=== PATIENT | female | born 1985 | race Caucasian/White ===

== ENCOUNTER → 2024-08-17 | Outpatient (CLI) | payer MEDICAID, SELFPAY | END | disposition home or self-care (01) | LOC: SL 11:21 | PROVIDERS: PCP Nurse Practitioner Adult Health; Referring Provider Internal Medicine Critical Care Medicine; Visit Provider Internal Medicine Critical Care Medicine | DX: G71.11 Myotonic muscular dystrophy (principal) | CPT/HCPCS: 94762 ×2 ==

== ENCOUNTER → 2024-08-24 | Outpatient (CLI) | payer MEDICAID, SELFPAY | END | disposition home or self-care (01) | LOC: SL 11:14 | PROVIDERS: PCP Nurse Practitioner Adult Health; Referring Provider Internal Medicine Critical Care Medicine; Visit Provider Internal Medicine Critical Care Medicine | DX: G71.11 Myotonic muscular dystrophy (principal) | CPT/HCPCS: 94762 ==

== ENCOUNTER → 2024-09-08 | Outpatient (CLI) | payer MEDICAID, SELFPAY | END | disposition home or self-care (01) | LOC: PSN 12:51 | PROVIDERS: PCP Nurse Practitioner Adult Health; Referring Provider Internal Medicine Critical Care Medicine; Visit Provider Internal Medicine Critical Care Medicine | DX: G71.11 Myotonic muscular dystrophy (principal) | CPT/HCPCS: 94060; 94726; 94729 ==

== ENCOUNTER → 2024-10-11 | Outpatient (CLI) | payer MEDICAID, SELFPAY | END | disposition home or self-care (01) | LOC: SL 20:02 | PROVIDERS: PCP Nurse Practitioner Adult Health; Referring Provider Nurse Practitioner Family; Visit Provider Nurse Practitioner Family | DX: G47.10 Hypersomnia, unspecified (principal) | CPT/HCPCS: 95810 ==

== ENCOUNTER → 2024-12-29 | Outpatient (CLI) | payer MEDICAID, SELFPAY ==
[2024-12-29 12:50] LABS: Allen Test Positive; Base Excess 5 mmol/L (-2 to +2); PO2 95 mmHG (75-100); SITE R Brach; SO2 98 % (95-99)
--- OUTSIDE RECORDS SUMMARY | 2024-12-29 19:52 | XMS RPT_ITS | CCD ---
Author Organization [facility] Care Team Providers Care Pricing Manager Name Role Phone JESSE ROMEO, DEBORA Khan Primary Care Physician MAST AREA LOSS PREVENTION MANAGER-TERRAZZO INSTALLER, JANICE Attending Karlee BYRNE MD, DEBORA Khan Primary Care Unavailable MAST AREA LOSS PREVENTION MANAGER-TERRAZZO INSTALLER, JANICE Attending Karlee BYRNE MD, DEBORA Khan Primary Care Unavailable MAST AREA LOSS PREVENTION MANAGER-TERRAZZO INSTALLER, JANICE Attending Karlee BYRNE MD, DEBORA Khan Primary Care Unavailable Mast AREA LOSS PREVENTION MANAGER.TERRAZZO INSTALLER, Janice Unavailable [phone] Debora Byrne Primary Care Provider [phone] Mast AREA LOSS PREVENTION MANAGER.TERRAZZO INSTALLER, Janice Unavailable MAURICIO CHOW Referring Unavailable JESSE, DEBORA ZIMMER Primary Care Unavailab MAURICIO Alston Attending Unavailable JESSE, DEBORA ZIMMER Primary Care Unavailab le JESSE, DEBORA ZIMMER Primary Care Unavailab MAURICIO Alston Referring Unavailable MAST AREA LOSS PREVENTION MANAGER-TERRAZZO INSTALLER, JANICE Primary Care UnavailKB Story Attending Unavailable MAST AREA LOSS PREVENTION MANAGER-TERRAZZO INSTALLER, JANICE Primary Care Physician [phone] Dr. Leif Quiros DO Attending Provider Dr. Kb Veloz DO Referring Provider [phone] Dr. Leif Quiros DO Referring Provider MAST PROFESSOR OF ENVIRONMENTAL STUDIES, JANICE Primary Care Provider Jessica Rust Attending Provider MAST PROFESSOR OF ENVIRONMENTAL STUDIES, JANICE Referring Provider [phone] Jessica Rust Referring Provider Dr. Leif Quiros DO Attending Provider Dr. Leif Quiros DO Referring Provider MAST PROFESSOR OF ENVIRONMENTAL STUDIES, JANICE Primary Care Provider [phone] Leif Quiros Attending Unavailable OgKb Referring Unavailable MAST, JANICE Primary Care Unavailable MAST, JANICE Referring Unavailable Jessica Amin Attending Unavailable MAST, JANICE Primary Care Unavailable Leif Quiros Referring Unavailable Leif Quiros Attending Unavailable MAST, JANICE Primary Care Unavailable MAST, JANICE Referring Unavailable RufenJessica messina Attending Unavailable MAST, JANICE Primary Care Unavailable MAST, JANICE Referring Unavailable RufenJessica messina Attending Unavailable MAST, JANICE Primary Care Unavailable Jessica Amin Attending Unavailable RuJessica wiggins Referring Unavailable Brown, Leif Referring Unavailable Ishaan, Leif Attending Unavailable MAST, JANICE Primary Care Unavailable MAST, JANICE Primary Care Unavailable RuJessica wiggins Attending Unavailable Jessica Amin Referring Unavailable Leif Quiros Attending Unavailable Ishaan, Leif Referring Unavailable MAST, JANICE Primary Care Unavailable Leif Quiros Attending Unavailable BrownLeif Referring Unavailable MAST, JANICE Primary Care Unavailable Allergies Allergy Classification Reported Allergen(s) Allergy Type Date of Onset Reaction(s) Facility (3 sources) seasonal enviromental Allergy to substance Typical [facility] Medications Current Medications Medication Drug Class(es) Dates Sig (Normalized) Sig (Original) acetaminophen 500 mg oral tablet (9 sources) Start: 07-29-2024 take 2 tablets by mouth every six hours as needed Acetaminophen (Tylenol Extra Strength) 500 mg tablet Active 1000 mg PO EVERY 6 HOURS as needed July 29, 2024 12:00am Start: 03-12-2022 acetaminophen 500 mg oral tablet Dose : 1,000 mg = 2 tab(s), Oral, TID, PRN pain or fever, 0 Refill(s) Start Date: 03/12/22 Status: Ordered Ascorbic Acid (2 sources) Vitamin C Start: 03-12-2022 Vitamin C qDay, PRN as needed, gummies, 0 Refill(s) Start Date: 03/12/22 Status: Ordered azithromycin 250 mg oral tablet (1 source) Macrolide Antimicrobial Start: 01-09-2024 End: 01-14-2024 azithromycin 250 mg oral tablet Dose : 250 mg = 1 tab(s), Oral, qDay, 2 tabs on day one, then one tab daily, X 5 day(s), # 6 tab(s), 0 Refill(s), 01/14/24 10:07:00 AM EDT, Pharmacy: [facility]/pharmacy #[id number], 160, cm, 01/09/24 9:44:00 EDT, Height, 34.2, kg, 01/09/24 9:44:00 EDT, Dosing Weight Start Date: 01/09/24 Stop Date: 01/14/24 Status: Ordered budesonide 0.25 mg/ml inhalation suspension (5 sources) Corticosteroid Start: 09-20-2024 End: 11-02-2024 take 0.5 mg by inhalation twice daily Budesonide 0.5 mg/2 mL suspension for nebulization Active 0.5 mg INHALATION TWICE A DAY 120 November 02, 2024 3:12pm 12 hr buPROPion hydrochloride 150 mg extended release oral tablet (2 sources) Aminoketone Start: 11-01-2024 take 1 tablet by mouth once daily Bupropion Hcl (Wellbutrin Sr) 150 mg tablet sustained-release 12 hr Active 150 mg PO daily 60 0 November 01, 2024 12:00am dicyclomine hydrochloride 10 mg oral capsule (11 sources) Anticholinergic Start: 07-29-2024 take 1 capsule by mouth once daily as needed Dicyclomine 10 mg capsule Active 10 mg PO daily as needed July 29, 2024 12:00am Start: 11-20-2023 End: 12-20-2023 dicyclomine 10 mg oral capsu le Dose : 10 mg = 1 cap(s), Oral, qDay, PRN as needed, # 30 cap(s), 0 Refill(s), Pharmacy: [facility]/pharmacy #[id number], Irritable bowel syndrome, 161, cm, 05/22/23 10:03:00 EST, Height, kg, 05/22/23 10:03:00 EST, Dosing Weight Start Date: 11/20/23 Stop Date: 12/20/23 Status: Ordered Start: 05-22-2023 End: 06-21-2023 dicyclomine 10 mg oral capsu le Dose : 10 mg = 1 cap(s), Oral, qDay, PRN as needed, # 30 cap(s), 0 Refill(s), Pharmacy: [facility] #[id number], Irritable bowel syndrome, 161, cm, 05/22/23 10:03:00 EST, Height, kg, 05/22/23 10:03:00 EST, Dosing Weight Start Date: 05/22/23 Stop Date: 06/21/23 Status: Ordered Start: 03-12-2022 End: 04-11-2022 dicyclomine 10 mg oral capsu le Dose : 10 mg = 1 cap(s), Oral, qDay, PRN as needed, # 30 cap(s), 0 Refill(s), Pharmacy: [facility] #[id number], Irritable bowel syndrome, 161.29, cm, 03/12/22 13:07:00 EST, Height Start Date: 03/12/22 Stop Date: 04/11/22 Status: Ordered dicyclomine HCl (DICYCLOMINE ORAL) Take by mouth as needed (abdominal cramping). 0 Active Comment on above: Take by mouth as nee ded (abdominal cramping). Elderberry preparation (3 sources) Start: take 1 mg by mouth once daily as needed elderberry mg, Oral, qDay, PRN as needed, gummie, 0 Refill(s) Start Date: 03/12/22 Status: Ordered ibuprofen 200 mg oral tablet (9 sources) Nonsteroidal Anti-inflammatory Drug Start: take 1 tablet by mouth every six hours as needed Ibuprofen 200 mg tablet Active 200 mg PO EVERY 6 HOURS as needed July 29, 2024 12:00am Start: 03-12-2022 ibuprofen 200 mg oral tablet Dose : 400 mg = 2 tab(s), Oral, q6hr, PRN pain or fever, 0 Refill(s) Start Date: 03/12/22 Status: Ordered Multivitamin preparation (2 sources) Start: 03-12-2022 take 1 tablet by mouth once daily as needed Multivitamin Dose = 1 tab(s), Oral, Daily, PRN as needed, 0 Refill(s) Start Date: 03/12/22 Status: Ordered nebulizer kits (3 sources) Start: 09-20-2024 nebulizer kits Active 0 .ROUTE .MEDSUPPLY 1 September 20, 2024 12:00am As directed Start: 09-20-2024 nebulizer kits Active 0 .ROUTE .MEDSUPPLY 1 September 20, 2024 12:00am As directed neublizer machine (3 sources) Start: 09-20-2024 neublizer mach ine Active 0 .ROUTE .MEDSUPPLY 1 0 September 20, 2024 12:00am Sydnie Jet nebulizer Start: 09-20-2024 neublizer mach ine Active 0 .ROUTE .MEDSUPPLY 1 September 20, 2024 12:00am Sydnie Jet nebulizer perflutren lipid microsphere s 1.3 mL in NaCl (PF) 0.9% 10 mL injection (DEFINITY) (1 source) Start: 08-25-2022 End: 11-24-2023 perflutren lipid microsphere s 1.3 mL in NaCl (PF) 0.9% 10 mL injection (DEFINITY) revefenacin 0.0583 mg/ml inhalation solution (4 sources) Start: 09-20-2024 Revefenacin (Y upelri) 175 mcg/3 mL solution for nebulization Active 175 ug INHALATION daily 90 September 20, 2024 12:00am 125 ml sodium chloride 9 mg/ ml prefilled syringe (1 source) Start: 08-25-2022 End: 11-24-2023 sodium chloride 0.9 % (flush ) 10 mL (BD POSIFLUSH) Completed/Discontinued Medications Medication Drug Class(es) Dates Sig (Normalized) Sig (Original) benzonatate 100 mg oral capsule (7 sources) Non-narcotic Antitussive Start: 01-09-2024 End: 01-03-2025 take 1 capsule by mouth every eight hours as needed Benzonatate 100 mg capsule Discontinued 100 mg PO Q8H as needed July 29, 2024 12:00am August 02, 2024 10:41am ELDERBERRY FRUIT (6 sources) Start: 07-29-2024 End: 08-02-2024 Elderberry Fruit 350 mg capsule Discontinued mg PO July 29, 2024 12:00am August 02, 2024 10:41am loratadine 10 mg oral tablet (12 sources) Start: 01-09-2024 End: 01-03-2025 take 1 tablet by mouth once daily Loratadine 10 mg tablet Discontinued 10 mg PO daily July 29, 2024 12:00am August 02, 2024 10:41am Start: 08-19-2022 take 1 tablet by swapna once daily loratadine (CLARITIN) 10 mg tablet Take 10 mg by mouth once daily. 0 08/19/2022 Active Start: 07-26-2021 loratadine 10 mg oral tablet Dose : 10 mg = 1 tab(s), Oral, qDay, # 90 tab(s), 2 Refill(s), Pharmacy: [facility] [address], 160, cm, 07/26/21 14:04:00 EDT, Height, kg, 07/26/21 14:04:00 EDT, Dosing Weight Start Date: 07/26/21 Status: Ordered Comment on above: Take 10 mg by mouth once daily. varenicline 1 mg oral tablet (4 sources) Partial Cholinergic Nicotinic Agonist Start: End: take 1 tablet by mouth twice daily, then take 1 tablet by mouth once Varenicline Tartrate (Chantix Continuing Month Box) 1 mg tablet Discontinued 1 mg PO TWICE A DAY 56 0 September 20, 2024 12:00am November 01, 2024 10:22am to begin after the starting pack Varenicline Tartrate (Chantix Starting Month Box) 0.5 mg (11)- 1 mg (42) tablets,dose pack (4 sources) Start: End: take 1 tablet by mouth once Varenicline Tartrate (Chantix Starting Month Box) 0.5 mg (11)- 1 mg (42) tablets,dose pack Discontinued 0 PO per package directions 53 September 20, 2024 12:00am November 01, 2024 10:22am PO PER PKG DIR Start: 09-20-2024 take 1 tablet by mouth once Va renicline Tartrate (Chantix Starting Month Box) 0.5 mg (11)- 1 mg (42) tablets,dose pack Active 0 PO per package directions 53 September 20, 2024 12:00am PO PER PKG DIR Problems Active Problems Problem Classification Problem Date Documented Da te Episodic/Chronic Administrative/social admission (9 sources) Patient encounter status; Translations: [Tobacco abuse counseling] 09-20-2024 Episodic Asthma (3 sources) Asthma 11-29-2019 Chronic Cardiac dysrhythmias (11 sources) Atrial flutter; Translations: [Typical atrial flutter] Onset: 3 11-29-2019 Chronic Cardiac dysrhythmias (1 source) Palpitations; Translations: [Palpitations] Onset: 3 08-25-2022 Episodic Chronic obstructive pulmonary disease and bronchiectasis (10 sources) Chronic obstructive lung disease; Translations: [Chronic obstructive pulmonary disease, unspecified] Onset: 5 09-20-2024 Chronic Comment on above: FEV1 54% Coagulation and hemorrhagic disorders (10 sources) Thrombocytopenic disorder; Translations: [Thrombocytopenia, unspecified] Onset: Chronic Disorders of teeth and jaw (3 sources) Abscess of jaw 11-29-2019 Episodic Lymphadenitis (3 sources) Anterior cervical lymphadenopathy 11-29-2019 Episodic Malaise and fatigue (6 sources) Asthenia; Translations: [Fatigue] 06-11-2022 Episodic Nutritional deficiencies (6 sources) Cachexia; Translations: [Cachexia] 07-29-2024 Episodic Other female genital disorders (3 sources) Heavy episode of vaginal bleeding 06-11-2022 Chronic Other gastrointestinal disorders (3 sources) Irritable bowel syndrome 03-12-2022 Chronic Other gastrointestinal disorders (19 sources) Dysphagia; Translations: [Dysphagia, unspecified] 06-11-2022 Episodic Other lower respiratory disease (6 sources) Cough; Translations: [Cough] 07-29-2024 Episodic Other lower respiratory disease (3 sources) Hypoxemia; Translations: [Hypoxemia] 11-01-2024 Episodic Other nervous system disorders (9 sources) Muscular dystrophy; Translations: [Muscular dystrophy, unspecified] 10-21-2015 Chronic Other nervous system disorders (2 sources) Steinert myotonic dystrophy syndrome; 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] Onset: 3 Chronic Other nervous system disorders (5 sources) Myotonic muscular dystrophy Chronic Other nervous system disorders (19 sources) Myotonic muscular dystrophy; 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] Onset: 5 08-03-2024 Chronic Other nervous system disorders (3 sources) Has difficulty with speech 06-11-2022 Episodic Other nutritional; endocrine; and metabolic disorders (9 sources) Body mass index less than 20; Translations: [Body mass index (BMI) 19.9 or less, adult] 06-11-2022 Episodic Other nutritional; endocrine; and metabolic disorders (3 sources) Underweight 06-11-2022 Episodic Other screening for suspected conditions (not mental disorders or infectious disease) (1 source) Encounter for screening for cardiovascular disorders; Translations: [Screening for ischemic heart disease] Onset: 3 Episodic Effie-; endo-; and myocarditis; cardiomyopathy (except that caused by tuberculosis or sexually transmitted disease) (18 sources) Cardiomyopathy; Translations: [Nonischemic congestive cardiomyopathy] 07-22-2019 Chronic Residual codes; unclassified (11 sources) Daytime hypersomnia; Translations: [Hypersomnia, unspecified] 09-20-2024 Chronic Comment on above: STOP BANG=3 Residual codes; unclassified (1 source) Hypersomnia, unspecified; Translations: [Hypersomnia, unspecified] Onset: 5 Chronic Residual codes; unclassified (15 sources) Tobacco user; Translations: [Tobacco use] 11-29-2019 Episodic Skin and subcutaneous tissue infections (3 sources) Abscess of neck 11-29-2019 Episodic Spontaneous (4 sources) Complete inevitable miscarriage without complication; Translations: [Complete or unspecified spontaneous without complication] Onset: 3 Episodic Unclassified (3 sources) Finding of sensation of abdomen 06-11-2022 Unclassified (6 sources) G71.11 - Myotonic muscular dystrophy Past or Other Problems Problem Classification Problem Date Documented Da te Episodic/Chronic Other gastrointestinal disorders (1 source) Dysphagia, unspecified; Translations: [Dysphagia, unspecified] Onset: 08-10-2024 Episodic Residual codes; unclassified (1 source) Tobacco use; Translations: [Tobacco use] Onset: 08-10-2024 Episodic Results Test Name Value Interpretation Reference Range Facility Pulmonary Visit Reporton Pulmonary Visit Report [facility] [place] [address] [place], [place] [address] OFFICE VISIT Date of Service: 12/27/24 MR#: [id number] Acct: [id number] Name: MILTONMCKAYLA BLANCO Rep #: [id number] : 1985 Provider: Jessica Amin NP Age/Sex: 39/F Location: [facility] Status: Signed Assessment and Plan Assessment and Plan (1) Myotonic muscular dystrophy: Status: Chronic Plan: There is both obstruction and restriction seen on the PFT. 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 I have recommended she continue with nebulized therapy and smoking cessation. At this time it does not appear that the patient requires CoughAssist device or vest therapy but these may be helpful in the future. Continue to follow with speech therapy for swallowing recommendations. Given the presence of muscular dystrophy, nocturnal hypoxemia, reduced MIPS, MEPS, and VC along with restrictive lung disease seen on PFT, I have recommended that the patient undergo an ABG to evaluate for PCO2 > 45 mmHg to begin NIV therapy. The patient will likely need to use [facility]. (2) Daytime hypersomnia: Status: Acute Comment: STOP BANG=3 Plan: Sleep apnea was not identified on PSG. There was oxyhemoglobin desaturations recorded during REM sleep. Patient is likely a candidate for NIV, await ABG. (3) COPD (chronic obstructive pulmonary disease): Status: Chronic Qualifiers: COPD type: unspecified COPD Qualified Code(s): J44.9 - Chronic obstructive pulmonary disease, unspecified Comment: FEV1 54% Plan: Continue with nebulized budesonide and Yupelri as ordered. These medications have reduced the cough frequency. No further testing at this time. The patient should notify this practice if she has worsening respiratory symptoms. (4) Encounter for tobacco use cessation counseling: Status: Acute Plan: The patient understands the benefits of smoking cessation. She has tolerated Wellbutrin 150 mg once daily dosing without side effects. Increase to 150 mg twice daily dose to assist with smoking cessation. Reassess on follow up. (5) Hypoxemia: Status: Acute Plan: Nocturnal hypoxemia is identified, this is likely due to the muscular dystrophy that is present. PAP therapy is warranted. Patient is willing to proceed with ABG. Orders: Orders ARTERIAL BLOOD GAS (AMB ONLY) Today J44.9 - Chronic obstructive pulmonary disease, unspecified Medications: Changed From bupropion HCl SR (Wellbutrin SR) 150 mg PO QDAY 60 ea 0RF J44.9 - Chronic obstructive pulmonary disease, unspecified To bupropion HCl SR (Wellbutrin SR) 150 mg PO BID 60 ea 5RF J44.9 - Chronic obstructive pulmonary disease, unspecified Plan Details Follow Up: 3 Months (LMR) HPI HPI Comments Details: The patient is a 39-year-old female who presents to the clinic today to follow-up for recent testing. She has a history of frequent pneumonia in the setting of myotonic muscular dystrophy, restrictive lung disease, COPD. She presents today with her significant other. The patient reported that she was diagnosed with myotonic muscular dystrophy around the age of 25. She has an apparent history of frequent pneumonias, according to the patient and her mother. She is not currently being actively managed or followed by any neurologist. She has not had recent exacerbation requiring oral prednisone or antibiotics since last follow-up. She was apparently last treated for pneumonia in December 2023. She has noted a significant increase in her muscular dystrophy symptoms over the course of the last several years with decrea sing tolerance to physical activity and frequent falls. In addition, the patient reported frequent swallowing difficulties with cough. The patient has not pursued the speech therapy referral that was previously placed. She denies wheezing, cough, shortness of breath. She denies chest pain and chest tightness. She denies cough. She denies fever, chills, body aches. She is currently on disability. She is a current daily smoker of 0.5 packs of cigarettes per day. Also admits to recreational use of smoking marijuana. She did try Chantix but had emesis. She has recently tried Wellbutrin but does not feel that it is working for her. Her significant other also smokes and is not ready to quit at this time. She admits to tiredness throughout the day. There is witnessed snoring. She does awaken at night gasping for air. She does not have a routine sleep schedule. She sleeps for about 12 to 16 hours a day interrupted. There is witnessed shallow breathing. She sleeps in supine and side-lying positioning. A PAP device has been ordered but patient has not yet been set up with therapy. She is using 2 L/min of supplemental oxygen at night. Budesonide and Yupelri (more content not included)... Normal [facility] Pulmonary Visit Reporton Pulmonary Visit Report [facility] [place] [address] [place], [place] [address] OFFICE VISIT Date of Service: 11/01/24 MR#: [id number] Acct: [id number] Name: MCKAYLA SAHA Rep #: [id number] : 1985 Provider: Jessica Amin NP Age/Sex: 39/F Location: [facility] Status: Signed Assessment and Plan Assessment and Plan (1) Myotonic muscular dystrophy: Status: Chronic Plan: There is both obstruction and restriction seen on the PFT. 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 I have recommended nebulized therapy, smoking cessation and further sleep testing at this time. At this time it does not appear that the patient requires CoughAssist device or vest therapy but these may be helpful in the future. Continue to follow with speech therapy for swallowing recommendations. The patient is not willing to complete an ABG today. Given the presence of muscular dystrophy, nocturnal hypoxemia, reduced MIPS, MEPS, and VC along with restrictive lung disease seen on PFT, I have recommended that the patient begin BiPAP therapy. The patient will likely need to use [facility]. She will likely need an Auto-titrating BiPAP or NIV both were discussed today at her appointment. (2) Daytime hypersomnia: Status: Acute Comment: STOP BANG=3 Plan: Sleep apnea was not identified on PSG. There was oxyhemoglobin desaturations recorded during REM sleep. I recommend that the patient utilize bilevel therapy for neuromuscular disease that has begun to affect her lung functioning. (3) COPD (chronic obstructive pulmonary disease): Status: Chronic Qualifiers: COPD type: unspecified COPD Qualified Code(s): J44.9 - Chronic obstructive pulmonary disease, unspecified Comment: FEV1 54% Plan: I continue to recommend that the patient begin nebulized budesonide and Yupelri. The patient does have a valid prescription and approval from insurance. Further clarification on the budesonide and nebulizer status is needed from pharmacy. The patient understands that they may be receiving a phone call from an unknown number and is encouraged to answer and respond. The budesonide should be nebulized twice daily and Yupelri nebulized once daily. The patient should notify this practice if she has worsening respiratory symptoms. (4) Encounter for tobacco use cessation counseling: Status: Acute Plan: The patient understands the benefits of smoking cessation and wishes to have help today. Chantix is discontinued. The patient would like to trial Wellbutrin and this is prescribed accordingly today. I have started with the 150 mg once daily dose and plan to increase to the BID dosing on follow up if the patient tolerates medication without side effect. Use and potential side effects of this medication were discussed with patient today. All questions were answered. Follow up in 8 weeks to reassess. (5) Hypoxemia: Status: Acute Plan: Nocturnal hypoxemia is identified, this is likely due to the muscular dystrophy that is present. I have recommended that she begin 2 L/min of supplemental oxygen at night while she is awaiting set up with Bipap therapy. Medications: New bupropion HCl SR (Wellbutrin SR) 150 mg PO QDAY 60 ea 0RF Plan Details Follow Up: 8 Weeks (LMR) HPI HPI Comments Details: The patient is a 38-year-old female who presents to the clinic today to follow-up for recent testing. She has a history of frequent pneumonia in the setting of myotonic muscular dystrophy, restrictive lung disease, COPD. She presents today with her mother. The patient reported that she was diagnosed with myotonic muscular dystrophy around the age of 25. She has an apparent history of frequent pneumonias, according to the patient and her mother. She is not currently being actively managed or followed by any neurologist. She has not had recent exacerbation requiring oral prednisone or antibiotics since last follow-up. She was apparently last treated for pneumonia in December 2023. She has noted a significant increase in her muscular dystrophy symptoms over the course of the last several years with decreasing tolerance to physical activity and frequent falls. In addition, the patient reported frequent swallowing difficulties with cough. The patient has not pursued the speech therapy referral that was previously placed. She denies wheezing, cough, shortness of breath. She denies chest pain and chest tightness. Her mother does report that she hears her cough on occasion. She denies fever, chills, body aches. She is currently on disability. She is a current daily smoker of 0.5 packs of cigarettes per day. Also admits to recreational use of smoking marijuana. She did try Chantix but had emesis with the medication. She has stopped using it. She admits to (more content not included)... Normal [facility] Pulmonary Visit [place] Pulmonary Visit Report [place] [facility] [address] [place] [address] OFFICE VISIT Date of Service: 09/20/24 MR#: [id number] Acct: [id number] Name: MCKAYLA SAHA Rep #: [id number] : 1985 Provider: Jessica Amin NP Age/Sex: 38/F Location: [facility] Status: Signed Assessment and Plan Assessment and Plan (1) Myotonic muscular dystrophy: Status: Chronic Plan: There is both obstruction and restriction seen on the PFT. 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 I have recommended nebulized therapy, smoking cessation and further sleep testing at this time. At this time it does not appear that the patient requires CoughAssist device or vest therapy but these may be helpful in the future. (2) Swallowing difficulty: Status: Chronic Plan: Due to the reported swallowing difficulties, I have recommended that she complete the referral to speech therapy for further evaluation. (3) Daytime hypersomnia: Status: Acute Comment: STOP BANG=3 Plan: The patient does have risk for sleep apnea. Not only is her STOP-BANG elevated but she has clusters of desaturations seen on the nocturnal oximetry. I have recommended that she proceed with an in-lab polysomnogram for further evaluation of suspected sleep disordered breathing and the patient is agreeable to proceed with the testing. The pathophysiology of sleep apnea was reviewed at length with patient today. I have discussed how PAP therapy can also help preserve her lung functioning in regards to muscular dystrophy. (4) COPD (chronic obstructive pulmonary disease): Status: Chronic Qualifiers: COPD type: unspecified COPD Qualified Code(s): J44.9 - Chronic obstructive pulmonary disease, unspecified Comment: FEV1 54% Plan: I have recommended that the patient begin nebulized budesonide and Yupelri. The patient should have a prescription for a nebulizer and kits. The budesonide should be nebulized twice daily and Yupelri nebulized once daily. The patient is in agreement to begin this regimen. The use of these medications were reviewed at length with patient and her mom today. The patient should notify this practice if she has worsening respiratory symptoms. (5) Encounter for tobacco use cessation counseling: Status: Acute Plan: The patient is educated about the benefits of smoking cessation. Medical nicotine replacement therapy was offered to the patient. The patient would like to trial Chantix and this is prescribed accordingly today. Discussed habits, barriers, coping mechanisms for 11 minutes face to face. All questions were answered. Orders: Orders Polysomnography Today G47.10 - Hypersomnia, unspecified Medications: New varenicline tartrate (Chantix Starting Month Box) PO PER PKG DIR 53 tabs 0RF varenicline tartrate (Chantix Continuing Month Box) to begin after the starting pack 1 mg PO BID 56 tabs 0RF budesonide 0.5 mg (2 mL) inhalation BID 60 mL 5RF revefenacin (Yupelri) 175 mcg (3 mL) inhalation QDAY 90 mL 5RF [nebulizer kits] As directed 1 ea 11RF [neublizer machine] Sydnie Jet nebulizer 1 ea 0RF Plan Details Follow Up: 6 Weeks (LMR) HPI HPI Comments Details: The patient is a 38-year-old female who presents to the clinic today to follow-up for recent testing. She has a history of frequent pneumonia in the setting of myotonic muscular dystrophy. The patient reported that she was diagnosed with myotonic muscular dystrophy around the age of 25. She has an apparent history of frequent pneumonias, according to the patient and her mother. She is not currently being actively managed or followed by any neurologist. She was apparently last treated for pneumonia in December 2023. She has noted a significant increase in her muscular dystrophy symptoms over the course of the last several years with decreasing tolerance to physical activity and frequent falls. In addition, the patient reported frequent swallowing difficulties with cough. The patient has not pursued the speech therapy referral that was previously placed. She denies wheezing, cough, shortness of breath. She denies chest pain and chest tightness. Her mother does report that she hears her cough on occasion. She denies fever, chills, body aches. She is currently on disability. She is a current daily smoker of 0.5 packs of cigarettes per day. Also admits to recreational use of smoking marijuana. She admits to tiredness throughout the day. There is witnessed snoring. She does awaken at night gasping for air. She does not have a routine sleep schedule. She sleeps for about 12 to 16 hours a day interrupted. There is witnessed shallow breathing. She sleeps in supine and side-lying positioning. She does not currently use any inhalers at her baseline. She is not (more content not included)... Normal [facility] Pulmonary Visit Reporton Pulmonary Visit Report [facility] [address] [place] [address] OFFICE VISIT Date of Service: 08/02/24 MR#: [id number] Acct: [id number] Name: MCKAYLA SAHA Rep #: [id number] : 1985 Provider: Dr. Leif Quiros DO Age/Sex: 38/F Location: [facility] Status: Signed Assessment and Plan Assessment and Plan (1) Myotonic muscular dystrophy: Status: Chronic Plan: The patient presents today to establish care over concerns for the pulmonary implications of her progressive myotonic muscular dystrophy. At the present time, the patient is asymptomatic from a respiratory perspective, but does report a history of frequent pneumonias. In addition, she does report frequent swallowing difficulties with associated cough. Accordingly, I would recommend that the patient be referred to speech therapy for evaluation. In the interim, we will plan to obtain pulmonary function studies along with MIPS/MEPS. Overnight oximetry will also be completed to assess for any nocturnal hypoxemia. I did explain to the patient the progressive nature of her disease and that sometimes patients require tracheostomy and PEG tube placement. The patient reported that she would never consider these interventions. At the present time, the patient appears to have an adequate cough. Therefore, I do not see an overt indication to initiate CoughAssist device or vest therapy. (2) Current tobacco use: Status: Chronic Plan: Tobacco cessation counseling was provided. (3) Swallowing difficulty: Status: Chronic Plan: In light of the reported swallowing difficulties, will refer to speech therapy for further evaluation. Orders: Orders OutPt Pulse Ox/Cont Overnight 08/02/24 G71.11 - Myotonic muscular dystrophy PFT Complete - DLCO, Spirometry b/a bronchodilators, lung volumes 09/08/24 G71.11 - Myotonic muscular dystrophy Referrals Speech Therapy Referral G71.11 - Myotonic muscular dystrophy HPI HPI Comments Details: The patient is a 38-year-old female who presents to the clinic today in referral for the evaluation of frequent pneumonia in the setting of myotonic muscular dystrophy. The patient reported that she was diagnosed with myotonic muscular dystrophy around the age of 25. She has an apparent history of frequent pneumonias, according to the patient and her mother. She is not currently being actively managed or followed by any neurologist. Ironically, she denies any breathing related issues today. She denies the presence of shortness of breath, cough, chest tightness or wheezing. She was apparently last treated for pneumonia in December 2023. She has noted a significant increase in her muscular dystrophy symptoms over the course of the last several years with decreasing tolerance to physical activity and frequent falls. In addition, the patient reported frequent swallowing difficulties with cough. She is currently on disability. She is a current daily smoker of 0.5 packs of cigarettes per day. She does not currently use any inhalers at her baseline. She is not oxygen dependent. The patient has never been evaluated by a district claims manager, nor has she ever completed pulmonary function studies in the past. Intake Vital Signs 08/02/24 10:38 Height 5 ft 3 in Weight: 81 lb BMI 14.3 BP 100/69 Blood Pressure Location Rt brachial Position Sitting Respiration 18 Pulse 80 Pulse Source Monitor Temp 97.4 F L Temperature Source Temporal Artery Pulse Oximetry (%) 99 Oxygen Delivery Method room air Intake Visit Reasons: MUSC DYST, RECUR PNEUMONIA, DFFY COUGHING SECRETIO [employer] Man Required: No Accompanied by: Mother Allergies No Known Allergies Allergy (Unverified 08/02/24 10:40) Medications ???Medication ???Instructions ???Recorded ???Confirmed ???Type acetaminophen 500 mg tablet 1,000 mg PO Q6H PRN 07/29/2407/29 History (Tylenol Extra Strength) dicyclomine 10 mg capsule 10 mg PO QDAY PRN 07/29/24 5 History ibuprofen 200 mg tablet 200 mg PO Q6H PRN 07/29/24 5 History PFSH Medical History Weakness generalized Underweight Neck abscess Episode of heavy vaginal bleeding Miscarriage IBS (irritable bowel syndrome) Fatigue Dysphagia Difficulty with speech Anterior cervical lymphadenopathy BMI less than 19,adult Asthma Abscess, jaw Abdominal cramps Thrombocytopenia Risk and functional assessment Family History Mother Heart disease Osteoporosis Father Myotonic dystrophy Sister Myotonic dystrophy Grandfather , Paternal CHF (congestive heart failure) Grandmother , 70yrs Sepsis secondary to c diff Social History (Updated 08/02/24 (more content not included)... Normal [facility] XR CHEST 2 VIEWSon 4 XR CHEST 2 VIEWS ORIGINAL EXAMINATION: TWO XRAY VIEWS OF THE CHEST 01/09/2024 10:31 am COMPARISON: Chest x-ray November 29, 2019 HISTORY: ORDERING SYSTEM PROVIDED HISTORY: Reason for Exam: cough, hx of muscular dystrophy, rule out pneumonia FINDINGS: The cardiomediastinal silhouette is within normal limits. The lungs appear hyperinflated. Developing airspace disease is and effacement of the left hemidiaphragm affects the left lower lobe. Appearance is consistent with developing left lower lobe pneumonia. There is no vascular congestion, pleural effusion, or pneumothorax. Stable crowding of the right lung markings seen in the medial right lung base. No acute osseous abnormality. IMPRESSION: Hyperinflated lungs with left lower lobe pneumonia. I have personally reviewed the images of this examination and agree with the resident's findings and interpretation. Interpreted by: Parker Schulz DO Preliminary Report By: Maxwell Meadows Electronically signed By Parker Schulz DO Dictated Date: 01/11/2024 8:26:16 AM Prelim Date: 01/11/2024 9:02:45 AM Sign Date: 01/11/2024 9:02:45 AM Ordering Provider: KB VELOZ [facility] ECHOon 09-09-2022 Echocardiography Echocardiography Report: Transthoracic Echo [facility] Date of service: 09/09/2022 1:03:52 PM PRECISION ASSEMBLER Ordering physician: MAURICIO CHOW Indication: Palpitations Technologist: Corrine Carolina [facility] Interpreting physician: Trinity Paulson MD PATIENT: Name: MCKAYLA SAHA : 1985 Age: 36 years Gender: F History of arrhythmia. Primary rhythm: sinus. Height: 154.94 cm BSA: 1.23 m Weight: 35.38 kg BMI: 14.7 kg/m Heart rate 91 bpm Technically difficult exam due to body habitus. Color Doppler was utilized to interrogate the cardiac valves assessed and spectral Doppler was utilized to determine the flow velocities and pressure gradients reported in this exam. MEASUREMENTS: Value Indexed Normal Max aortic dimension 2.4 cm Ao < 3.8 Left atrial volume 10 ml (4ch A-L) 8 ml/m Tania <= 34 LV ID (diastole) 3.5 cm (2D) 2.81 cm/m LV ID (systole) 2.5 cm (2D) 2.06 cm/m IVS, leaflet tips 0.6 cm (2D) Posterior wall thickness 0.6 cm (2D) Left ventricular mass 52 g (2D) 42 g/m LV stroke volume 16 ml (2D 4-ch.) LV end diastolic volume 24 ml (2D 4-ch.) 19.7 ml/m 29<=EDVi<62 LV end systolic volume 8 ml (2D 4-ch.) 6.8 ml/m Ejection Fraction 66 % (2D 4-ch.) EF > 54 FINDINGS: LEFT VENTRICLE The left ventricle is small. Left ventricular systolic function is normal. Normal left ventricular diastolic function. Mitral annular lateral E/e': 5.9. Mitral annular septal E/e': 5.4. Wall Motion: All scored segments are normal. RIGHT VENTRICLE The right ventricle is normal in size. Right ventricular systolic function is normal. RV systolic tissue Doppler velocity is 10.0 cm/s. Tricuspid annular displacement is 1.7 cm. Estimated right atrial pressure is 3 mmHg (although IVC not seen). LEFT ATRIUM The left atrial cavity is normal in size. RIGHT ATRIUM The right atrial cavity is normal in size. Inferior Vena Cava: The inferior vena cava appears normal measuring 1.3 cm. MITRAL VALVE The mitral valve leaflets are structurally normal. There is no mitral valve regurgitation. The pressure half time is 48 msec. The peak mitral E/A ratio is 1.38. The average mitral E/e' ratio is 5.6. The mitral flow deceleration time is 166 msec. TRICUSPID VALVE The tricuspid valve leaflets are structurally normal. There is no tricuspid valve regurgitation. AORTIC VALVE The aortic valve cusps are structurally normal. There is no aortic valve regurgitation. Tricuspid aortic valve. The peak gradient is 6 mmHg (peak velocity = 117.8 cm/s). PULMONIC VALVE The pulmonic valve cusps are structurally normal. There is trace (trace - 1+) pulmonic valve regurgitation. AORTA The visualized aorta is normal in size. Measurements - Mid ascending aorta 2.4 cm. CONCLUSIONS: - Technically difficult exam due to body habitus. - Exam indication: Palpitations - The left ventricle is small. Left ventricular systolic function is normal. EF = 66 5% (2D 4-ch.) Normal left ventricular diastolic function. - The right ventricle is normal in size. Right ventricular systolic function is normal. - There are no significant valvular abnormalities. - The patient has not had a prior CC echocardiographic exam for comparison. * * * Final * * * CC [employer] [facility] Image : [id number] [id number] Normal [facility] CNOVon 08-25-2022 CNOV Office Visit (CAWSTR ) MCKAYLA SAHA ([id number]) 1985 F Date Time Provider Department 08/25/22 2:00 PM MAURICIO CHOW CAWSTR During your visit today, we recorded the following information about you: Pulse Blood pressure Weight 86/minute 82/58 35.4 kg Jadyn Celaya 08/25/2022 2:54 PM Signed EVENT MONITOR DISPOSABLE PATCH INSTRUCTIONS Patient Name: Mckayla Saha Clinic Number: [id number] Skin prepped and cleansed with alcohol Patch secured to prepped area Monitor Activated Serial #: [id number] Patient Instructed: Prescribed order timeframe Bathing guidelines Usage of event button and diary documentation Return of monitor at the end of prescribed order Call with problems [phone] or [phone]. [phone] Patient expresses a good understanding of instructions Jadyn Chow MD 08/25/2022 2:54 PM Signed Mauricio Chow MD Interventional Cardiology [facility] [address], [place] [address] [phone] Chief Complaint Patient presents with: New Patient HISTORY OF PRESENT ILLNESS: Ms. Saha is a 36 year old female seen in my office for cardiac evaluation patient with myotonic dystrophy type I Patient had recurrent episodes of palpitation on a daily basis diagnosed with atrial flutter 2 years ago she was on medicine for short period of time Myotonic dystrophy was diagnosed at age of 21 progressively got worse by age of 26 Symptoms suggestive of possible underlying arrhythmias Cardiac Risk Factors none PAST MEDICAL HISTORY Diagnosis Date Abdominal spasms History of atrial flutter Myotonic muscular dystrophy (HCC) PAST SURGICAL HISTORY Procedure Laterality Date TONSILLECTOMY AND ADENOIDECTOMY FAMILY HISTORY Problem Relation Age of Onset COPD Mother Muscular dystrophy Father Muscular dystrophy Sister Social History Tobacco Use Smoking status: Every Day Packs/day: 1.00 Years: 18.00 Pack years: 18.00 Types: Cigarettes Smokeless tobacco: Never Substance Use Topics Alcohol use: Never ALLERGIES Not on File Medications: Current Outpatient Medications Medication Sig Dispense Refill loratadine (CLARITIN) 10 mg tablet Take 10 mg by mouth once daily. dicyclomine HCl (DICYCLOMINE ORAL) Take by mouth as needed (abdominal cramping). Current Facility-Administered Medications Medication Dose Route Frequency Provider Last Rate Last Admin perflutren lipid microspheres 1.3 mL in NaCl (PF) 0.9% 10 mL injection (DEFINITY) INTRAVENOUS DIRECTED PRN Mauricio Chow MD sodium chloride 0.9 % (flush) 10 mL (BD POSIFLUSH) 10 mL INTRAVENOUS DIRECTED PRN Mauricio Chow MD Review of Systems Constitutional: Negative for chills, diaphoresis, fever, malaise/fatigue and weight loss. HENT: Negative for congestion, ear discharge, ear pain, hearing loss, nosebleeds, sinus pain, sore throat and tinnitus. Eyes: Negative for blurred vision, double vision, photophobia, pain, discharge and redness. Respiratory: Negative for cough, hemoptysis, sputum production, shortness of breath, wheezing and stridor. Cardiovascular: Negative for chest pain, palpitations, orthopnea, claudication, leg swelling and PND. Gastrointestinal: Negative for abdominal pain, blood in stool, constipation, diarrhea, heartburn, melena, nausea and vomiting. Genitourinary: Negative for dysuria, flank pain, frequency, hematuria and urgency. Musculoskeletal: Negative for back pain, falls, joint pain, myalgias and neck pain. Skin: Negative for itching and rash. Neurological: Negative for dizziness, tingling, tremors, sensory change, speech change, focal weakness, seizures, loss of consciousness, weakness and headaches. Endo/Heme/Allergies: Negative for environmental allergies and polydipsia. Does not bruise/bleed easily. Psychiatric/Behaviora l: Negative for depression, hallucinations, memory loss, substance abuse and suicidal ideas. The patient is not nervous/anxious and does not have insomnia. Physical Examination: Vitals:BP 82/58 Pulse 86 Wt 78 lb (35.4kg) SpO2 99% BP w/Orthostatic Vitals Date and Time Orthostatic BP Orthostatic Pulse BP Pulse BP Position BP Site BP Cuff Size 08/25/22 1405 -- -- 82/58 86 -- -- -- Last 2 Encounter Wt Readings: Date: Wt: 08/25/2022 35.4 kg (78 lb) Physical Exam Constitutional: General: She is not in acute distress. Appearance: She is not diaphoretic. HENT: Head: Normocephalic and atraumatic. Right Ear: External ear normal. Left Ear: External ear normal. Nose: Nose normal. Mouth/Throat: Mouth: Mucous membranes are moist. Eyes: General: Right eye: No discharge. Left eye: No discharge. Conjunctiva/sclera: Conjunctivae normal. Pupils: Pupils are equal, round, and reactive to light. Cardiovascular: Rate and Rhythm: Normal rate and regular rhythm. Heart (more content not included)... Normal [facility] [id number] 08-25-2022 ECG01 Ventricular Rate : 7 9 BPM Atrial Rate : 79 BPM P-R Interval : 162 ms QRS Duration : 96 ms Q-T Interval : 382 ms QTC Calculation(Bazett) : 438 ms Calculated P [place] : 84 degrees Calculated R [place] : 9 degrees Calculated T [place] : 67 degrees NORMAL SINUS RHYTHM Confirmed by ALVERTO MARK DO ([id number]) on 08/28/2022 8:39:12 AM NAME : MCKAYLA SAHA PID : [id number] : 1985 Gender : Female Race : Unknown ORD : Procedure Date : Aug 25 2022 14:14:17 Edit Date : Aug 28 2022 08:39:14 Diagnosis: NORMAL SINUS RHYTHM Confirmed by ALVERTO MARK DO ([id number]) on 08/28/2022 8:39:12 AM Test Reason : Location : 136 : [place] Overread By : ALVERTO MARK DO Edited By : ALVERTO MARK DO Referred By : MAURICIO CHOW Acquired by : Kirill jorge [facility] US PELVIS NON-OB W/TRANSVAGI NALon 06-17-2022 US PELVIS NON-OB W/TRANSVAGINAL ORIGINAL EXAMINATION: TRANSVAGINAL PELVIC ULTRASOUND 06/13/2022 TECHNIQUE: Transvaginal and transabdominal pelvic ultrasound was performed. COMPARISON: None HISTORY: ORDERING SYSTEM PROVIDED HISTORY: Reason for Exam: possible miscarriage FINDINGS: Measurements: Uterus: 5.9 x 2.7 x 4.7 cm. Endometrial stripe: 0.3 cm. Right Ovary:2.6 x 1.5 x 2.0 cm Left Ovary: 1.4 x 2.0 x 2 1 cm. Ultrasound Findings: Uterus: Uterus demonstrates normal myometrial echotexture. Incidental nabothian cysts. In the anterior midbody there is a 1.0 cm hypoechoic lesions suspected represent small myometrial fibroid. Endometrial stripe: Endometrial stripe is within normal limits. Right Ovary: Right ovary is within normal limits. Normal color and spectral waveforms. Left Ovary: Left ovary is within normal limits. Likely corpus luteum present. Normal blood flow on color and spectral Doppler. Free Fluid: No evidence of free fluid. IMPRESSION: Normal appearance of the uterus without fluid in the endometrial stripe. Incidental small likely fibroid the anterior midbody of the uterus. Normal follicular appearance of the ovaries with a incidental left corpus luteum. RECOMMENDATIONS: Unavailable Interpreted by: Agapito Carreno Preliminary Report By: Agapito Carreno Electronically signed By Agapito Carreno Dictated Date: 06/16/2022 11:02:08 PM Prelim Date: 06/16/2022 11:04:42 PM Sign Date: 06/16/2022 11:04:42 PM Ordering Provider: JANICE Roy [facility] ([place]) Leticia 06-16-2022 KERVIN Telephone (REFPHY) MCKAYLA SAHA ([id number]) 1985 F Date Time Provider Department 06/16/22 NO ONE (HISTORICAL) REFPHY During your visit today, we recorded the following information about you: Serena Willson 06/16/2022 10:35 AM Signed Patient: Mckayla Saha Date of : 1985 Patient phone number: [phone] Referring Provider for the encounter: Janice Kennedy Requesting Provider: Any Reason for requesting visit (RFV/signs and symptoms/diagnosis): for A Flutter Person calling: self Return call to: self Medical Records/Insurance Card scanned into Exosect: Yes Comments: please contact the patient Katharina Martinezer Sched 06/16/2022 11:51 AM Signed [facility] RP - Unable to reach patient, mailbox is full, cell phone ringing busy, Atrial Flutter, Additional Information: additional 7 pages sent to external documents. Katharina Montero Sched 06/19/2022 8:38 AM Signed [facility] RP - Final attempt, Unable to reach patient, mailbox is full, cell phone ringing busy. Allergies As of Date: 06/16/2022 (Not on File) Date Reviewed: Never Reviewed Reason for Visit: External Referrals/resources [909] Problem List As Of Date: 06/16/2022 (None) Encounter Status:Closed by SERENA CLANCY on 06/16/22 [facility] HCGQon 06-13-2022 hCG, quantitative 583.3 mIU/mL Normal [facility] ([place]) Comment on above: Result Comment: HCG Levels with Gestation age: 0.2- 1 week. . . . . . . . . . . . . . . 5 - 50 mIU/mL 1-2 weeks . . . . . . . . . . . . . . . 50 - 500 mIU/mL 2-3 weeks . . . . . . . . . . . . . . . 100 - 5,000 mIU/ml 3-4 weeks . . . . . . . . . . . . . . . 500 - 10,000 mIU/mL 4-5 weeks . . . . . . . . . . . . . . . 1,000 - 5,000 mIU/mL 5-6 weeks . . . . . . . . . . . . . . . 10,000 - 100,000 mIU/mL 6-8 weeks . . . . . . . . . . . . . . . 15,000 - 200,000 mIU/mL 2-3 months . . . . . . . . . . . . . . . 10,000 - 100,000 mIU/mL Performed By: #### H CGQ #### [address] [address] LABORATORYOrdered By: SYSTEM SYSTEM on 06-13-2022 HCG Qn 583.3 m[IU]/mL Invalid Interpretation Code AO ADM SS .Auto Diffon 06-11-2022 Basophil, Absolute 0.0 10 3/mcL Normal 0.0-0.2 [facility] ([place]) Comment on above: Performed By: #### G FR, ADIFF, CMP, HCGQ, CBC, ANEU #### [address] [address] Basophils/100 WBC (Bld) 0.3 % Normal 0.0-2.5 [facility] ([place]) Comment on above: Performed By: #### G FR, ADIFF, CMP, HCGQ, CBC, ANEU #### [address] [address] Eosinophil, Absolute 0.1 10 3/mcL Normal 0.0-0.4 [facility] ([place]) Comment on above: Performed By: #### G FR, ADIFF, CMP, HCGQ, CBC, ANEU #### [address] [address] Eosinophils/100 WBC (Bld) 1.0 % Normal 0.0-7.0 [facility] ([place]) Comment on above: Performed By: #### G FR, ADIFF, CMP, HCGQ, CBC, ANEU #### [address] [address] Lymphocyte, Absolute 2.3 10 3/mcL Normal 0.8-3.9 [facility] ([place]) Comment on above: Performed By: #### G FR, ADIFF, CMP, HCGQ, CBC, ANEU #### [address] [address] Lymphocytes/100 WBC (Bld) 26.7 % Normal 10.0-50.0 [facility] [facility] ([place] Comment on above: Performed By: #### G FR, ADIFF, CMP, HCGQ, CBC, ANEU #### [address] [address] Monocyte, Absolute 0.4 10 3/mcL Normal 0.2-1.0 [facility] ([place]) Comment on above: Performed By: #### G FR, ADIFF, CMP, HCGQ, CBC, ANEU #### [address] [address] Monocytes/100 WBC (Bld) 4.2 % Normal 1.7-13.0 [facility] ([place]) Comment on above: Performed By: #### G FR, ADIFF, CMP, HCGQ, CBC, ANEU #### [address] [address] Neutrophils/100 WBC (Bld) 67.8 % Normal 37.0-80.0 [facility] ([place]) Comment on above: Performed By: #### G FR, ADIFF, CMP, HCGQ, CBC, ANEU #### [address] [address] .GFRon 06-11-2022 GFR 182 ml/min/1.73sqm Normal [facility] ([place]) Comment on above: Result Comment: GFR Population mean for , Non- Americans Ages 20-29 = 116 mL/min/1.73 sq.m. Ages 30-39 = 107 mL/min/1.73 sq.m. Ages 40-49 = 99 mL/min/1.73 sq.m. Ages 50-59 = 93 mL/min/1.73 sq.m. Ages 60-69 = 85 mL/min/1.73 sq.m. Ages 70+ = 75 mL/min/1.73 sq.m. Chronic Kidney Disease: Less than 60 mL/min/1.73 square meters End Stage Renal Disease: Less than 15 mL/min/1.73 square meters Performed By: #### G FR, ADIFF, CMP, HCGQ, CBC, ANEU #### [address] [address] GFR Non- 150 ml/min/1.73sqm Normal [facility] ([place]) Comment on above: Result Comment: GFR Population mean for , Non- Americans Ages 20-29 = 116 mL/min/1.73 sq.m. Ages 30-39 = 107 mL/min/1.73 sq.m. Ages 40-49 = 99 mL/min/1.73 sq.m. Ages 50-59 = 93 mL/min/1.73 sq.m. Ages 60-69 = 85 mL/min/1.73 sq.m. Ages 70+ = 75 mL/min/1.73 sq.m. Chronic Kidney Disease: Less than 60 mL/min/1.73 square meters End Stage Renal Disease: Less than 15 mL/min/1.73 square meters Performed By: #### G FR, ADIFF, CMP, HCGQ, CBC, ANEU #### [address] [address] .NEUABSon 06-11-2022 Neutrophil, Absolute 5.9 10 3/mcL Normal 2.9-6.2 [facility] ([place]) Comment on above: Performed By: #### G FR, ADIFF, CMP, HCGQ, CBC, ANEU #### [address] [address] CBCon 06-11-2022 Erythrocyte distribution width (RBC) [Ratio] 14.8 % High 11.5-14.5 [facility] ([place] Comment on above: Performed By: #### G FR, ADIFF, CMP, HCGQ, CBC, ANEU #### [address] [address] Hematocrit (Bld) [Volume fraction] 45.8 % Normal 37.0-47.0 [facility] ([place]) Comment on above: Performed By: #### G FR, ADIFF, CMP, HCGQ, CBC, ANEU #### [place] [address] Hgb 15.0 G/dL Normal 12.0-16.0 [facility] ([place]) Comment on above: Performed By: #### G FR, ADIFF, CMP, HCGQ, CBC, ANEU #### [place] [address] MCH (RBC) [Entitic mass] 29.6 pg Normal 27.0-31.2 [facility] ([place] Comment on above: Performed By: #### G FR, ADIFF, CMP, HCGQ, CBC, ANEU #### [place] [address] MCHC 32.8 G/dL Low 33.0-37.0 [facility] ([place] Comment on above: Performed By: #### G FR, ADIFF, CMP, HCGQ, CBC, ANEU #### [place] [address] MCV (RBC) [Entitic vol] 90.4 fL Normal 80.0-94.0 [facility] ([place] Comment on above: Performed By: #### G FR, ADIFF, CMP, HCGQ, CBC, ANEU #### [place] [address] Platelet 129 10 3/mcL Low 130-400 [facility] ([place] Comment on above: Performed By: #### G FR, ADIFF, CMP, HCGQ, CBC, ANEU #### [place] [address] Platelet mean volume (Bld) [Entitic vol] 8.6 fL Normal 7.4-10.4 [facility] ([place] Comment on above: Performed By: #### G FR, ADIFF, CMP, HCGQ, CBC, ANEU #### [address] [address] RBC 5.07 10 6/mcL Normal 4.20-5.40 [facility] ([place] Comment on above: Performed By: #### G FR, ADIFF, CMP, HCGQ, CBC, ANEU #### [address] [address] WBC 8.6 10 3/mcL Normal 4.6-10.8 [facility] ([place]) Comment on above: Performed By: #### G FR, ADIFF, CMP, HCGQ, CBC, ANEU #### [address] [address] CMPon 06-11-2022 Albumin Level 4.1 G/dL Normal 3.5-5.0 [facility] ([place] Comment on above: Performed By: #### G FR, ADIFF, CMP, HCGQ, CBC, ANEU #### [address] [address] Albumin/Globulin [Mass ratio] 1.2 {ratio} Normal 1.1-2.5 [facility] ([place] Comment on above: Performed By: #### G FR, ADIFF, CMP, HCGQ, CBC, ANEU #### [address] [address] ALP [Catalytic activity/Vol] 70 U/L Normal 40-135 [facility] ([place] Comment on above: Performed By: #### G FR, ADIFF, CMP, HCGQ, CBC, ANEU #### [address] [address] ALT [Catalytic activity/Vol] 22 U/L Normal 14-59 [facility] ([place] Comment on above: Performed By: #### G FR, ADIFF, CMP, HCGQ, CBC, ANEU #### [address] [address] AST [Catalytic activity/Vol] 26 U/L Normal 10-40 [facility] ([place] Comment on above: Performed By: #### G FR, ADIFF, CMP, HCGQ, CBC, ANEU #### [address] [address] Bili Total 0.2 mg/dL Normal 0.2-1.0 [facility] ([place]) Comment on above: Result Comment: Use of this assay is not recommended for patients undergoing treatment with eltrombopag due to the potential for falsely elevated results. Performed By: #### G FR, ADIFF, CMP, HCGQ, CBC, ANEU #### [address] [address] BUN/Creatinine Ratio 32 ratio High 7-27 [facility] ([place]) Comment on above: Performed By: #### G FR, ADIFF, CMP, HCGQ, CBC, ANEU #### [address] [address] Calcium [Mass/Vol] 9.3 mg/dL Normal 8.4-10.2 [facility] ([place]) Comment on above: Performed By: #### G FR, ADIFF, CMP, HCGQ, CBC, ANEU #### [address] [address] Chloride [Moles/Vol] 105 mmol/L Normal 98-107 [facility] ([place]) Comment on above: Performed By: #### G FR, ADIFF, CMP, HCGQ, CBC, ANEU #### [address] [address] CO2 [Moles/Vol] 29 mmol/L Normal 22-29 [facility] ([place]) Comment on above: Performed By: #### G FR, ADIFF, CMP, HCGQ, CBC, ANEU #### [address] [address] Creatinine [Mass/Vol] 0.47 mg/dL Low 0.55-1.02 [facility] ([place]) Comment on above: Performed By: #### G FR, ADIFF, CMP, HCGQ, CBC, ANEU #### [address] [address] Electrolyte Balance 11.0 mEq/L Normal 4.0-15.0 [facility] ([place]) Comment on above: Performed By: #### G FR, ADIFF, CMP, HCGQ, CBC, ANEU #### [address] [address] Globulin 3.3 G/dL Normal [facility] ([place]) Comment on above: Performed By: #### G FR, ADIFF, CMP, HCGQ, CBC, ANEU #### [address] [address] Glucose [Mass/Vol] 83 mg/dL Normal 70-105 [facility] ([place]) Comment on above: Performed By: #### G FR, ADIFF, CMP, HCGQ, CBC, ANEU #### [address] [address] Potassium [Moles/Vol] 4.9 mmol/L Normal 3.5-5.1 [facility] ([place]) Comment on above: Performed By: #### G FR, ADIFF, CMP, HCGQ, CBC, ANEU #### [address] [address] Sodium [Moles/Vol] 145 mmol/L Normal 136-145 [facility] ([place]) Comment on above: Performed By: #### G FR, ADIFF, CMP, HCGQ, CBC, ANEU #### [address] [address] Total Protein 7.4 G/dL Normal 6.4-8.2 [facility] ([place]) Comment on above: Performed By: #### G FR, ADIFF, CMP, HCGQ, CBC, ANEU #### [address] [address] Urea nitrogen [Mass/Vol] 15 mg/dL Normal 7-18 [facility] ([place] Comment on above: Performed By: #### G FR, ADIFF, CMP, HCGQ, CBC, ANEU #### [address] [address] HCGQon 06-11-2022 hCG, quantitative 1379.6 mIU/mL Normal [facility] ([place]) Comment on above: Result Comment: HCG Levels with Gestation age: 0.2- 1 week. . . . . . . . . . . . . . . 5 - 50 mIU/mL 1-2 weeks . . . . . . . . . . . . . . . 50 - 500 mIU/mL 2-3 weeks . . . . . . . . . . . . . . . 100 - 5,000 mIU/ml 3-4 weeks . . . . . . . . . . . . . . . 500 - 10,000 mIU/mL 4-5 weeks . . . . . . . . . . . . . . . 1,000 - 5,000 mIU/mL 5-6 weeks . . . . . . . . . . . . . . . 10,000 - 100,000 mIU/mL 6-8 weeks . . . . . . . . . . . . . . . 15,000 - 200,000 mIU/mL 2-3 months . . . . . . . . . . . . . . . 10,000 - 100,000 mIU/mL Performed By: #### G FR, ADIFF, CMP, HCGQ, CBC, ANEU #### [place] [address] LABORATORYOrdered By: SYSTEM SYSTEM on 06-11-2022 Albumin BCP dye [Mass/Vol] 4.1 G/dL Invalid Interpretation Code 3.5 - 5.0 G/dL AO ADM SS Albumin/Globulin [Mass ratio] 1.2 {ratio} Invalid Interpretation Code 1.1 - 2.5 ratio AO ADM SS ALP [Catalytic activity/Vol] 70 U/L Invalid Interpretation Code 40 - 135 U/L AO ADM SS ALT With P-5'-P [Catalytic activity/Vol] 22 U/L Invalid Interpretation Code 14 - 59 U/L AO ADM SS AST With P-5'-P [Catalytic activity/Vol] 26 U/L Invalid Interpretation Code 10 - 40 U/L AO ADM SS Bilirubin [Mass/Vol] 0.2 mg/dL Invalid Interpretation Code 0.2 - 1.0 mg/dL AO ADM SS Calcium [Mass/Vol] 9.3 mg/dL Invalid Interpretation Code 8.4 - 10.2 mg/dL AO ADM SS Chloride [Moles/Vol] 105 mmol/L Invalid Interpretation Code 98 - 107 mmol/L AO ADM SS CO2 [Moles/Vol] 29 mmol/L Invalid Interpretation Code 22 - 29 mmol/L AO ADM SS Creatinine [Mass/Vol] 0.47 mg/dL Invalid Interpretation Code 0.55 - 1.02 mg/dL AO ADM SS Electrolyte Balance 11.0 mEq/L Invalid Interpretation Code 4.0 - 15.0 mEq/L AO ADM SS GFR 182 ml/min/1.73sqm Invalid Interpretation Code AO Chemistry S GFR Non- 150 ml/min/1.73sqm Invalid Interpretation Code AO Chemistry S Globulin 3.3 G/dL Invalid Interpretation Code AO ADM SS Glucose [Mass/Vol] 83 mg/dL Invalid Interpretation Code 70 - 105 mg/dL AO ADM SS HCG Qn 1379.6 m[IU]/mL Invalid Interpretation Code AO ADM SS Potassium [Moles/Vol] 4.9 mmol/L Invalid Interpretation Code 3.5 - 5.1 mmol/L AO ADM SS Protein [Mass/Vol] 7.4 G/dL Invalid Interpretation Code 6.4 - 8.2 G/dL AO ADM SS Sodium [Moles/Vol] 145 mmol/L Invalid Interpretation Code 136 - 145 mmol/L AO ADM SS Urea nitrogen [Mass/Vol] 15 mg/dL Invalid Interpretation Code 7 - 18 mg/dL AO ADM SS Urea nitrogen/Creatinine [Mass ratio] 32 ratio Invalid Interpretation Code 7 - 27 ratio AO ADM SS LABORATORYOrdered By: Zoila Linton on 06-11-2022 Basophil, Absolute 0.0 103/mcL Invalid Interpretation Code 0.0 - 0.2 10^3/mcL AO Workflow SS Basophils/100 WBC (Bld) 0.3 % Invalid Interpretation Code 0.0 - 2.5 % AO Workflow SS Eosinophil, Absolute 0.1 103/mcL Invalid Interpretation Code 0.0 - 0.4 10^3/mcL AO Workflow SS Eosinophils/100 WBC (Bld) 1.0 % Invalid Interpretation Code 0.0 - 7.0 % AO Workflow SS Erythrocyte distribution width (RBC) [Ratio] 14.8 % Invalid Interpretation Code 11.5 - 14.5 % AO Workflow SS Hematocrit (Bld) [Volume fraction] 45.8 % Invalid Interpretation Code 37.0 - 47.0 % AO Workflow SS Hemoglobin (Bld) [Mass/Vol] 15.0 G/dL Invalid Interpretation Code 12.0 - 16.0 G/dL AO Workflow SS Lymphocyte, Absolute 2.3 103/mcL Invalid Interpretation Code 0.8 - 3.9 10^3/mcL AO Workflow SS Lymphocytes/100 WBC (Bld) 26.7 % Invalid Interpretation Code 10.0 - 50.0 % AO Workflow SS MCH (RBC) [Entitic mass] 29.6 pg Invalid Interpretation Code 27.0 - 31.2 pg AO Workflow SS MCHC 32.8 G/dL Invalid Interpretation Code 33.0 - 37.0 G/dL AO Workflow SS MCV (RBC) [Entitic vol] 90.4 fL Invalid Interpretation Code 80.0 - 94.0 fL AO Workflow SS Monocyte, Absolute 0.4 103/mcL Invalid Interpretation Code 0.2 - 1.0 10^3/mcL AO Workflow SS Monocytes/100 WBC (Bld) 4.2 % Invalid Interpretation Code 1.7 - 13.0 % AO Workflow SS Neutrophil, Absolute 5.9 103/mcL Invalid Interpretation Code 2.9 - 6.2 10^3/mcL AO Workflow SS Neutrophils/100 WBC (Bld) 67.8 % Invalid Interpretation Code 37.0 - 80.0 % AO Workflow SS Platelet mean volume (Bld) [Entitic vol] 8.6 fL Invalid Interpretation Code 7.4 - 10.4 fL AO Workflow SS Platelets (Bld) [#/Vol] 129 103/mcL Invalid Interpretation Code 130 - 400 10^3/mcL AO Workflow SS RBC (Bld) [#/Vol] 5.07 106/mcL Invalid Interpretation Code 4.20 - 5.40 10^6/mcL AO Workflow SS WBC (Bld) [#/Vol] 8.6 103/mcL Invalid Interpretation Code 4.6 - 10.8 10^3/mcL AO Workflow SS Vital Signs Date Time Vital Sign Value Performing Clinician Faci yamily 12-27-2024 05:37-0400 Body height 160.[address] Leif Quiros DO Work Phone: [facility] 12-27-2024 05:37-0400 Body mass index (BMI) [Ratio] 15 kg/m2 Dr. Leif Quiros DO Work Phone: [facility] 12-27-2024 05:37-0400 Body temperature 95.3 [degF] Dr. Leif Quiros DO Work Phone: [facility] 12-27-2024 05:37-0400 Body weight 38.[address] Leif Quiros DO Work Phone: [facility] 12-27-2024 05:37-0400 Diastolic blood pressure 69 mm[Hg] Dr. Leif Quiros DO Work Phone: [facility] 12-27-2024 05:37-0400 Heart rate 77 /min Dr. Leif Quiros DO Work Phone: [facility] 12-27-2024 05:37-0400 Respiratory rate 18 /min Dr. Leif Quiros DO Work Phone: [facility] 12-27-2024 05:37-0400 SaO2% (BldA) [Mass fraction] 97 % Dr. Leif Quiros DO Work Phone: [facility] 12-27-2024 05:37-0400 Systolic blood pressure 116 mm[Hg] Dr. Leif Quiros DO Work Phone: [facility] 11-01-2024 08:34-0400 Body mass index (BMI) [Ratio] 14.8 kg/m2 Dr. Kb Veloz DO Work Phone: [facility] 11-01-2024 08:34-0400 Body temperature 97.4 [degF] Dr. Kb Veloz DO Work Phone: [facility] 11-01-2024 08:34-0400 Body weight 38.[address] Kb Veloz DO Work Phone: [facility] 11-01-2024 08:34-0400 Diastolic blood pressure 68 mm[Hg] Dr. Kb Veloz DO Work Phone: [facility] 11-01-2024 08:34-0400 Heart rate 73 /min Dr. Kb Veloz DO Work Phone: [facility] 11-01-2024 08:34-0400 Respiratory rate 16 /min Dr. Kb Veloz DO Work Phone: [facility] 11-01-2024 08:34-0400 SaO2% (BldA) [Mass fraction] 99 % Dr. Kb Veloz DO Work Phone: [facility] 11-01-2024 08:34-0400 Systolic blood pressure 104 mm[Hg] Dr. Kb Veloz DO Work Phone: [facility] 09-20-2024 07:51-0400 Body mass index (BMI) [Ratio] 14 kg/m2 Dr. Kb Veloz DO Work Phone: [facility] 09-20-2024 07:51-0400 Body temperature 97.1 [degF] Dr. Kb Veloz DO Work Phone: [facility] 09-20-2024 07:51-0400 Body weight 35.[address] Kb Veloz DO Work Phone: [facility] 09-20-2024 07:51-0400 Diastolic blood pressure 75 mm[Hg] Dr. Kb Veloz DO Work Phone: [facility] 09-20-2024 07:51-0400 Heart rate 86 /min Dr. Kb Veloz DO Work Phone: [facility] 09-20-2024 07:51-0400 Respiratory rate 18 /min Dr. Kb Veloz DO Work Phone: [facility] 09-20-2024 07:51-0400 SaO2% (BldA) [Mass fraction] 97 % Dr. Kb Veloz DO Work Phone: [facility] 09-20-2024 07:51-0400 Systolic blood pressure 111 mm[Hg] Dr. Kb Veloz DO Work Phone: [facility] 08-02-2024 10:38-0400 Body height 160.[address] Kb Veloz DO Work Phone: [facility] 08-02-2024 10:38-0400 Body mass index (BMI) [Ratio] 14.3 kg/m2 Dr. Kb Veloz DO Work Phone: [facility] 08-02-2024 10:38-0400 Body temperature 97.4 [degF] Dr. Kb Veloz DO Work Phone: [facility] 08-02-2024 10:38-0400 Body weight 36.[address] Kb Veloz DO Work Phone: [facility] 08-02-2024 10:38-0400 Diastolic blood pressure 69 mm[Hg] Dr. Kb Veloz DO Work Phone: [facility] 08-02-2024 10:38-0400 Heart rate 80 /min Dr. Kb Veloz DO Work Phone: [facility] 08-02-2024 10:38-0400 Respiratory rate 18 /min Dr. Kb Veloz DO Work Phone: [facility] 08-02-2024 10:38-0400 SaO2% (BldA) [Mass fraction] 99 % Dr. Kb Veloz DO Work Phone: [facility] 08-02-2024 10:38-0400 Systolic blood pressure 100 mm[Hg] Dr. Kb Veloz DO Work Phone: [facility] 08-25-2022 14:05-0400 Body weight 35.38 kg Mauricio Cohw MD Work Phone: [facility] 08-25-2022 14:05-0400 Diastolic blood pressure 58 mm[Hg] Mauricio Chow MD Work Phone: [facility] 08-25-2022 14:05-0400 Heart rate 86 /min Mauricio Chow MD Work Phone: [facility] 08-25-2022 14:05-0400 SaO2% (BldA) [Mass fraction] 99 % Mauricio Chow MD Work Phone: [facility] 08-25-2022 14:05-0400 Systolic blood pressure 82 mm[Hg] Mauricio Chow MD Work Phone: [facility] Encounters Encounter Date Encounter Type Care Provider Facility Start: 12-29-2024 ambulatory JANICE MAST Facility:[facility] Start: 12-27-2024 End: 12-27-2024 Patient encounter procedure ZULEYMA Amin [facility] Work Phone: Start: 12-27-2024 End: 12-27-[address] Leif Quiros DO Work Phone: [facility] Start: 11-01-2024 End: 11-01-2024 Patient encounter procedure FUEL DISTRIBUTION SYSTEM OPERATOR Jessica Amin -[facility] Work Phone: Start: 11-01-2024 End: 11-01-[address] Kb Veloz DO Work Phone: [facility] Start: 10-11-2024 End: 10-11-[address] Kb Veloz DO Work Phone: [facility] Work Phone: Start: 10-11-2024 End: 10-11-2024 Patient encounter procedure FUEL DISTRIBUTION SYSTEM OPERATOR Jessica Amin -[facility] Work Phone: Start: 10-11-2024 End: 10-11-2024 ambulatory JANICE MAST Facility:[facility] Start: 09-20-2024 End: 09-20-2024 Patient encounter procedure ZULEYMA Amin [facility] Work Phone: Start: 09-20-2024 End: 09-20-[address] Kb Veloz DO Work Phone: [facility] Work Phone: Start: 09-08-2024 Non-patient / Non-visit Dr. Leif quinn DO -[facility] Start: 09-08-2024 End: 09-08-[address] Kb Veloz DO Work Phone: [facility] Work Phone: Start: 09-08-2024 End: 09-08-[address] Leif Quiros DO -Pulmonary Services/Neurology Work Phone: Start: 09-08-2024 End: 09-08-2024 ambulatory Leif Quiros Facility:[facility] Start: 08-24-2024 End: 08-24-[address] Leif Quiros DO -[facility] Lab Work Phone: Start: 08-24-2024 End: 08-24-2024 ambulatory Leif Quiros Facility:[facility] Start: 08-17-2024 End: 08-17-[address] Kb Veloz DO Work Phone: [facility] Work Phone: Start: 08-17-2024 End: 08-17-[address] Leif Quiros DO -[facility] Work Phone: Start: 08-17-2024 End: 08-17-2024 ambulatory Leif Quiros Facility:[facility] Start: 08-02-2024 End: 08-02-[address] Leif Quiros DO -[facility] Work Phone: Start: 08-02-2024 End: 08-02-2024 ambulatory Leif Quiros Facility:[facility] Start: 01-09-2024 End: 01-09-2024 ambulatory JANICE KENNEDY AREA LOSS PREVENTION MANAGER-TERRAZZO INSTALLER Facility:[facility] Start: 01-09-2024 End: 01-09-2024 Patient encounter procedure KB VELOZ DO [facility] Start: 09-09-2022 End: 09-09-2022 ambulatory DEBORA BYRNE Facility:[facility] Start: 08-25-2022 End: 08-25-2022 ambulatory MAURICIO CHOW Facility:[facility] Start: 08-25-2022 End: 08-25-2022 Patient encounter procedure Mauricio Chow MD Work Phone: Cardiology Comment on above: Typical atrial flutt er (HCC) (Primary Dx); Myotonic dystrophy, type 1 (HCC) Start: 06-13-2022 End: 06-14-2022 ambulatory JANICE MAST AREA LOSS PREVENTION MANAGER-TERRAZZO INSTALLER Facility:[facility] Start: 06-13-2022 End: 06-14-2022 ambulatory JANICE MAST AREA LOSS PREVENTION MANAGER-TERRAZZO INSTALLER Facility:[facility] Start: 06-13-2022 End: 06-13-2022 Patient encounter procedure JANICE MAST AREA LOSS PREVENTION MANAGER-TERRAZZO INSTALLER [facility] Start: 06-11-2022 End: 06-12-2022 ambulatory JANICE MAST AREA LOSS PREVENTION MANAGER-TERRAZZO INSTALLER Facility:[facility] Start: 06-11-2022 End: 06-11-2022 Patient encounter procedure JANICE MAST AREA LOSS PREVENTION MANAGER-TERRAZZO INSTALLER [facility] Procedures Date Procedure Procedure Detail Performing Clinician Echocardiography JANICE KENNEDY AREA LOSS PREVENTION MANAGER-TERRAZZO INSTALLER Comment on above: EF 40-45%, LV the ca vity size is mildly increased. Wall thickness is normal. Systolic function mildly reduced. Mild diffuse hypokinesis. Mild MR. Left atrium mildly reduced. RV systolic pressure by doppler is 18mm Hg. Estimated right atrial pressure is 10mm Hg. Trivial TR. Extraction of wisdom tooth K BRYANT MAST AREA LOSS PREVENTION MANAGER-TERRAZZO INSTALLER Tonsillectomy JANICE [facility] AP RN-TERRAZZO INSTALLER Plan of Treatment Date Care Activity Detail Author Start: 09-08-2024 Measurement of respi ratory function [facility] Start: 08-17-2024 Noninvasive ear/puls e oximetry overnight monitor MEASURE BLOOD OXYGEN LEVEL [facility] Start: 08-02-2024 Patient referral [facility] Work Phone: Start: 12-26-2022 Influenza vaccination INFLUENZ A (Season Ended) [facility] Start: 09-01-2022 End: 08-26-2023 Echocardiography ECHO Cardiology Routine Expected: 09/01/2022, Expires: 08/26/2023 [facility] Work Phone: Comment on above: Expected: 09/01/2022 , Expires: 08/26/2023 Start: 04-27-2022 DEPRESSION ASSESSMENT DEPRESSION ASS ESSMENT [facility] Start: 10-10-2015 HPV TESTING HPV TESTING [facility] Start: 2006 PAP TESTING PAP TESTING [facility] Start: 2004 Urine microalbumin profile DTA P,TDAP,TD (1 - Tdap) [facility] Start: 10-10-2003 HEPATITIS C SCREENING HEPATITIS C SC REENING [facility] Start: 10-10-2003 HIV SCREENING HIV SCREENING [facility] Start: 10-10-1991 PNEUMOCOCCAL (1 - PCV) PNEUMOCOCCAL (1 - PCV) [facility] Start: 04-10-1986 COVID-19 VACCINE (#1) COVID-19 VACCI NE (#1) [facility] Start: 1985 HEPATITIS B (1 of 3 - 3-dose series) HEPATITIS B (1 of 3 - 3-dose series) [facility] End: 08-20-2023 ECG COMPLETE ECG COMPLETE ECG Routine 1 Occurrences starting 08/19/2022 until 08/20/2023 [facility] Work Phone: Comment on above: 1 Occurrences starti ng 08/19/2022 until 08/20/2023 OUTSIDE VENDOR CARDI AC OUTPATIENT EXTENDED RHYTHM RECORDING (WITHOUT TELEMETRY) OUTSIDE VENDOR CARDIAC OUTPATIENT EXTENDED RHYTHM RECORDING (WITHOUT TELEMETRY) Holter Routine Ordered: 08/25/2022 [facility] Work Phone: Comment on above: Ordered: 08/25/2022 Patient referral [facility] Work Phone: [facility]omn[facility] Payers Date Payer Category Payer Self-pay 2022 Medicaid [facility] MEDICAID [facility] [employer] [id number] [id number] 2022-Present [phone] [address] [place] [address] Medicaid [id number] 2022 Private Health Insurance [id number] 1985 Unknown [id number]. 627 1985 Unknown [id number] [id number]. 627 1985 Unknown [id number] [id number]. 627 1985 Unknown [id number] [id number]. 627 Unknown [id number] [id number]. 462 Unknown [id number] [id number]. 462 Unknown [id number] [id number]. 462 Unknown [id number] [id number]. 462 Unknown [id number] 2.16.840.1.951931.3.579.2. 462 Unknown [id number] 2.16.840.1.876421.3.579.2. 462 Unknown [id number] 2.16.840.1.001630.3.579.2. 462 Unknown [id number] 2.16.840.1.635059.3.579.2. 462 Unknown [id number] 2.16.840.1.186811.3.579.2. 462 Unknown [id number] [id number]. 462 Social History Date Type Detail Facility Start: 07-20-2019 Tobacco smoking status Heavy t obacco smoker (finding) [facility] Start: 1985 Sex Assigned At Female A [facility] Start: 08-25-2022 End: 08-02-2024 Tobacco smoking status GAIS Smokes tobacco daily [facility] Work Phone: History of tobacco use Cigarette Smoker [facility] Work Phone: Start: 08-25-2022 Cigarettes smoked current (pack per day) - Reported 1 [facility] Start: 08-25-2022 Tobacco use and exposure Smokeless tobacco non-user [facility] Work Phone: Start: 08-25-2022 Alcohol intake Lifetime non-d hyun (finding) [facility] Start: 1985 Sex Assigned At Not on file [facility] Start: 08-22-2024 Sex Female (finding) [facility] Clinical Notes 06-11-2022 to 09-20-2024 Note Date & Type Note Facility 09-20-2024 Evaluation note Diagnosis Onset Date Resolution Daytime hypersomnia acute August 262024 12:38pm Encounter for tobacco use cessation counseling acute September 20, 2024 12:38pm COPD (chronic obstructive pulmonary disease) chronic September 20, 2024 12:38pm 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, 2024 12:38pm Swallowing difficulty chronic September 20, 2024 12:38pm Daytime hypersomnia acute November 01, 2024 10:12am Encounter for tobacco use cessation counseling acute November 01, 2024 10:12am Hypoxemia acute November 01, 2024 10:12am COPD (chronic obstructive pulmonary disease) chronic November 01, 2024 10:12am Myotonic muscular dystrophy chronic November 01, 2024 10:12am Daytime hypersomnia acute 2024 11:17am Encounter for tobacco use cessation counseling acute December 27 11:17am Hypoxemia acute December 27, 2024 11:17am COPD (chronic obstructive pulmonary disease) chronic December 27 11:17am Myotonic muscular dystrophy chronic December 27 11:17am [facility] Work Phone: 1(449) 314-358004-08-2025 Evaluation note* Diagnosis Onset Date Resolution Status Admit Date Current tobacco use chronic August 02, 2024 10:35am Myotonic muscular dystrophy chronic August 02, 2024 10:35am Swallowing difficulty chronic Jul 10:35am [facility] Work Phone: 1(737) 428-249904-08-2025 Evaluation note* Diagnosis Onset Date Resolution Status Admit Date Current tobacco use chronic August 02, 2024 10:35am Myotonic muscular dystrophy chronic August 02, 2024 10:35am Swallowing difficulty chronic Jul 10:35am Daytime hypersomnia acute August 262024 12:38pm Current tobacco use chronic August 262024 12:38pm 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, 2024 12:38pm Swallowing difficulty chronic September 20, 2024 12:38pm [facility] Work Phone: [phone] Evaluation note* Diagnosis Onset Date Resolution Status Admit Date Current tobacco use chronic August 02, 2024 10:35am Myotonic muscular dystrophy chronic August 02, 2024 10:35am Swallowing difficulty chronic Jul 10:35am Daytime hypersomnia acute August 262024 12:38pm Encounter for tobacco use cessation counseling acute September 20 12:38pm COPD (chronic obstructive pulmonary disease) chronic September 20 12:38pm 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, 2024 12:38pm Swallowing difficulty chronic September 20, 2024 12:38pm [facility] Work Phone: 1(350) 931-245504-08-2025 Evaluation note* Diagnosis Onset Date Resolution Status Admit Date Current tobacco use chronic August 02, 2024 10:35am Myotonic muscular dystrophy chronic August 02, 2024 10:35am Swallowing difficulty chronic Jul 10:35am Daytime hypersomnia acute August 262024 12:38pm Encounter for tobacco use cessation counseling acute September 20 12:38pm COPD (chronic obstructive pulmonary disease) chronic September 20 12:38pm 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 Author Type: Physician Type: Progress Notes Filed: 08/25/2022 2:54 PM Note Text: Mauricio Chow MD Interventional Cardiology [facility] [address], [place] [address] [id number] Chief Complaint Patient presents with: New Patient HISTORY OF PRESENT ILLNESS: Ms. Saha is a 36 year old female seen in my office for cardiac evaluation patient with myotonic dystrophy type I Patient had recurrent episodes of palpitation on a daily basis diagnosed with atrial flutter 2 years ago she was on medicine for short period of time Myotonic dystrophy was diagnosed at age of 21 progressively got worse by age of 26 Symptoms suggestive of possible underlying arrhythmias Cardiac Risk Factors none PAST MEDICAL HISTORY Diagnosis Date Abdominal spasms History of atrial flutter Myotonic muscular dystrophy (HCC) PAST SURGICAL HISTORY Procedure Laterality Date TONSILLECTOMY AND ADENOIDECTOMY FAMILY HISTORY Problem Relation Age of Onset COPD Mother Muscular dystrophy Father Muscular dystrophy Sister Social History Tobacco Use Smoking status: Every Day Packs/day: 1.00 Years: 18.00 Pack years: 18.00 Types: Cigarettes Smokeless tobacco: Never Substance Use Topics Alcohol use: Never ALLERGIES Not on File Medications: Current Outpatient Medications Medication Sig Dispense Refill loratadine (CLARITIN) 10 mg tablet Take 10 mg by mouth once daily. dicyclomine HCl (DICYCLOMINE ORAL) Take by mouth as needed (abdominal cramping). Current Facility-Administered Medications Medication Dose Route Frequency Provider Last Rate Last Admin perflutren lipid microspheres 1.3 mL in NaCl (PF) 0.9% 10 mL injection (DEFINITY) INTRAVENOUS DIRECTED PRN Mauricio Chow MD sodium chloride 0.9 % (flush) 10 mL (BD POSIFLUSH) 10 mL INTRAVENOUS DIRECTED PRN Mauricio Chow MD Review of Systems Constitutional: Negative for chills, diaphoresis, fever, malaise/fatigue and weight loss. HENT: Negative for congestion, ear discharge, ear pain, hearing loss, nosebleeds, sinus pain, sore throat and tinnitus. Eyes: Negative for blurred vision, double vision, photophobia, pain, discharge and redness. Respiratory: Negative for cough, hemoptysis, sputum production, shortness of breath, wheezing and stridor. Cardiovascular: Negative for chest pain, palpitations, orthopnea, claudication, leg swelling and PND. Gastrointestinal: Negative for abdominal pain, blood in stool, constipation, diarrhea, heartburn, melena, nausea and vomiting. Genitourinary: Negative for dysuria, flank pain, frequency, hematuria and urgency. Musculoskeletal: Negative for back pain, falls, joint pain, myalgias and neck pain. Skin: Negative for itching and rash. Neurological: Negative for dizziness, tingling, tremors, sensory change, speech change, focal weakness, seizures, loss of consciousness, weakness and headaches. Endo/Heme/Allergies: Negative for environmental allergies and polydipsia. Does not bruise/bleed easily. Psychiatric/Behavioral: Negative for depression, hallucinations, memory loss, substance abuse and suicidal ideas. The patient is not nervous/anxious and does not have insomnia. Physical Examination: Vitals:BP 82/58 Pulse 86 Wt 78 lb (35.4kg) SpO2 99% BP w/Orthostatic Vitals Date and Time Orthostatic BP Orthostatic Pulse BP Pulse BP Position BP Site BP Cuff Size 08/25/22 1405 -- -- 82/58 86 -- -- -- Last 2 Encounter Wt Readings: Date: Wt: 08/25/2022 35.4 kg (78 lb) Physical Exam Constitutional: General: She is not in acute distress. Appearance: She is not diaphoretic. HENT: Head: Normocephalic and atraumatic. Right Ear: External ear normal. Left Ear: External ear normal. Nose: Nose normal. Mouth/Throat: Mouth: Mucous membranes are moist. Eyes: General: Right eye: No discharge. Left eye: No discharge. Conjunctiva/sclera: Conjunctivae normal. Pupils: Pupils are equal, round, and reactive to light. Cardiovascular: Rate and Rhythm: Normal rate and regular rhythm. Heart sounds: Normal heart sounds, S1 normal and S2 normal. No murmur heard. No friction rub. No gallop. No S3 or S4 sounds. Pulmonary: Effort: Pulmonary effort is normal. No respiratory distress. Breath sounds: Normal breath sounds. No wheezing or rales. Chest: Chest wall: No tenderness. Musculoskeletal: General: Normal range of motion. Cervical back: Normal range of motion and neck supple. Skin: General: Skin is warm and dry. Neurological: Mental Status: She is alert and oriented to person, place, and time. Psychiatric: Mood and Affect: Mood normal. Thought Content: Thought content normal. Judgment: Judgment normal. Pertinent Labs: CBC: Hemoglobin (g/dL) Date Value 10/29/2012 12.9 Hematocrit (%) Date Value 10/29/2012 39.3 WBC (thou/cmm) Date Value (more content not included)...[facility]05-01-2023 NoteHNO ID: [id number] Author: Jadyn Celaya Service: ? Author Type: ? Type: Progress Notes Filed: 08/25/2022 2:54 PM Note Text: EVENT MONITOR DISPOSABLE PATCH INSTRUCTIONS Patient Name: Mckayla Saha [facility] Number: [id number] Skin prepped and cleansed with alcohol Patch secured to prepped area Monitor Activated Serial #: [id number] Patient Instructed: Prescribed order timeframe Bathing guidelines Usage of event button and diary documentation Return of monitor at the end of prescribed order Call with problems [phone] or [phone]. [phone] Patient expresses a good understanding of instructions [facility] of Present illness Narrative* Mauricio Chow MD - 08/25/2022 2:51 PM EDT Images from the original note were not included. Mauricio Chow MD Interventional Cardiology [facility] [address], [place] [address] [id number] Chief Complaint Patient presents with: New Patient HISTORY OF PRESENT ILLNESS: Ms. Saha is a 36 year old female seen in my office for cardiac evaluation patient with myotonicdystrophy type I Patient had recurrent episodes of palpitation on a daily basis diagnosed with atrial flutter 2 years ago she was on medicine for short period of time Myotonic dystrophy was diagnosed at age of 21 progressively got worse by age of 26 Symptoms suggestive of possible underlying arrhythmias Cardiac Risk Factors none PAST MEDICAL HISTORY Diagnosis Date Abdominal spasms History of atrial flutter Myotonic muscular dystrophy (HCC) PAST SURGICAL HISTORY Procedure Laterality Date TONSILLECTOMY & ADENOIDECTOMY <AGE 12 FAMILY HISTORY Problem Relation Age of Onset COPD Mother Muscular dystrophy Father Muscular dystrophy Sister Social History Tobacco Use Smoking status: Every Day Packs/day: 1.00 Years: 18.00 Pack years: 18.00 Types: Cigarettes Smokeless tobacco: Never Substance Use Topics Alcohol use: Never ALLERGIES Not on File Medications: Current Outpatient Medications Medication Sig Dispense Refill loratadine (CLARITIN) 10 mg tablet Take 10 mg by mouth once daily. dicyclomine HCl (DICYCLOMINE ORAL) Take by mouth as needed (abdominal cramping). Current Facility-Administered Medications Medication Dose Route Frequency Provider Last Rate Last Admin perflutren lipid microspheres 1.3 mL in NaCl (PF) 0.9% 10 mL injection (DEFINITY) INTRAVENOUS DIRECTED PRN Mauricio Chow MD sodium chloride 0.9 % (flush) 10 mL (BD POSIFLUSH) 10 mL INTRAVENOUS DIRECTED PRN Mauricio Chow MD Review of Systems Constitutional: Negative for chills, diaphoresis, fever, malaise/fatigue and weight loss. HENT: Negative for congestion, ear discharge, ear pain, hearing loss, nosebleeds, sinus pain, sore throat and tinnitus. Eyes: Negative for blurred vision, double vision, photophobia, pain, discharge and redness. Respiratory: Negative for cough, hemoptysis, sputum production, shortness of breath, wheezing and stridor. Cardiovascular: Negative for chest pain, palpitations, orthopnea, claudication, leg swelling and PND. Gastrointestinal: Negative for abdominal pain, blood in stool, constipation, diarrhea, heartburn, melena, nausea and vomiting. Genitourinary: Negative for dysuria, flank pain, frequency, hematuria and urgency. Musculoskeletal: Negative for back pain, falls, joint pain, myalgias and neck pain. Skin: Negative for itching and rash. Neurological: Negative for dizziness, tingling, tremors, sensory change, speech change, focal weakness, seizures, loss of consciousness, weakness and headaches. Endo/Heme/Allergies: Negative for environmental allergies and polydipsia. Does not bruise/bleed easily. Psychiatric/Behavioral: Negative for depression, hallucinations, memory loss, substance abuse and suicidal ideas. The patient is not nervous/anxious and does not have insomnia. Physical Examination: Vitals:BP 82/58 Pulse 86 Wt 78 lb (35.4kg) SpO2 99% BP w/Orthostatic Vitals Date and Time Orthostatic BP Orthostatic Pulse BP Pulse BP Position BP Site BP Cuff Size 08/25/22 1405 -- -- 82/58 86 -- -- -- Last 2 Encounter Wt Readings: Date: Wt: 08/25/2022 35.4 kg (78 lb) Physical Exam Constitutional: General: She is not in acute distress. Appearance: She is not diaphoretic. HENT: Head: Normocephalic and atraumatic. Right Ear: External ear normal. Left Ear: External ear normal. Nose: Nose normal. Mouth/Throat: Mouth: Mucous membranes are moist. Eyes: General: Right eye: No discharge. Left eye: No discharge. Conjunctiva/sclera: Conjunctivae normal. Pupils: Pupils are equal, round, and reactive to light. Cardiovascular: Rate and Rhythm: Normal rate and regular rhythm. Heart sounds: Normal heart sounds, S1 normal and S2 normal. No murmur heard. No friction rub. No gallop. No S3 or S4 sounds. Pulmonary: Effort: Pulmonary effort is normal. No respiratory distress. Breath sounds: Normal breath sounds. No wheezing or rales. Chest: Chest wall: No tenderness. Musculoskeletal: General: Normal range of motion. Cervical back: Normal range of motion and neck supple. Skin: General: Skin is warm and dry. Neurological: Mental Status: She is alert and oriented to person, place, and time. Psychiatric: Mood and Affect: Mood normal. Thought Content: Thought content normal. Judgment: Judgment normal. Pertinent Labs: CBC: Hemoglobin (g/dL) Date Value 10/29/2012 12.9 Hematocrit (%) Date Value 10/29/2012 39.3 WBC (thou/cmm) Date Value 10/29/2012 15.9 Platelet Count (thou/cmm) Date Value 10/29/2012 209 BMP: Glucose (mg/dL) Date Value 09/08/2012 98 Potassium (mEq/L) Date Value 09/08/2012 3.7 Sodium (mEq/L) Date Value 09/08/2012 140 Chloride (mEq/L) Date Value 09/08/2012 104 CO2 (mEq/L) Date Value 09/08/2012 27 Creatinine (mg/dL) Date Value 09/08/2012 0.52 BUN (mg/dL) Date Value 09/08/2012 8 Anion Gap (no units) Date Value 09/08/2012 13 Calcium (mg/dL) Date Value 09/08/2012 9.5 INR: Lipid Profile: No results found for: CHOL, HDL, LDL, TG Hemoglobin A1C: No results found for: HGBA1C TSH: No results found for: TSHREFL Prior Cardiac Testing EKG Assessment and Plan: 36 years old 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 Typical atrial flutter (HCC) - ICD9: 427.32, ICD10: I48.3 (primary diagnosis) Prior history of atrial flutter treated with medication Currently she is having recurrent episodes of palpitation possible arrhythmia Increased risk of atrial fibrillation flutter and ventricular arrhythmia and patient with myotonic dystrophy type I We will schedule for 14 days monitor Echocardiography to assess LV function 2. Myotonic dystrophy, type 1 (HCC) - ICD9: 359.21, ICD10: G71.11 Per PCP Mauricio Chow MD Follow up plannin weeks Electronically signed by Mauricio Chow MD on August 25, 2022, 2:51 PM The above note was partially created using a dictation recognition software. A reasonable attempt has been made to correct any errors. * Jadyn Celaya - 08/25/2022 2:48 PM EDT EVENT MONITOR DISPOSABLE PATCH INSTRUCTIONS Patient Name: Mckayla [facility] Number: [id number] Skin prepped and cleansed with alcohol Patch secured to prepped area Monitor Activated Serial #: [id number] Patient Instructed: Prescribed order timeframe Bathing guidelines Usage of event button and diary documentation Return of monitor at the end of prescribed order Call with problems [phone] or [phone]. [phone] Patient expresses a good understanding of instructions [facility]yn [facility] Plan note Diagnostic Tests Pending * hCG, quantitative(AO) 06/11/22 Future Scheduled Tests Radiology* US Pelvis Non-OB W/Transvaginal 06/11/22 [facility] Evaluation note* Diagnosis Typical atrial flutter (HCC)- Primary Atrial flutter Myotonic dystrophy, type 1 (HCC) Myotonic muscular dystrophy documented in this encounter [facility] course Narrative No data available for this section [facility] Hospital Discharge instructions No data available for this section [facility] Progress note No data available for this section [facility] Reason for referral (narrative)* Outpatient Procedure (Routine) - Authorized Specialty Diagnoses / Procedures Referred By Brice pelaez Referred To Contact [facility] [place] Diagnoses Screening for ischemic heart disease Palpitations Procedures ECHO ECHO TTHRC R-T 2D W/WOM-MODE COMPL SPEC&COLR D Mauricio Chow MD [address] [place] [address] [facility] [place] [address] [place] [id number] Referral ID Status Reason Start Date Expiration Date Visits Requested Visits Authorized [id number] Authorized Auto-Generat ed Referral 09/01/2022 08/25/2023 1 1 * Outpatient Procedure (Routine) - Closed Specialty Diagnoses / Procedures Referred By Brice pelaez Referred To Contact [facility] [place] Diagnoses Screening for ischemic heart disease Procedures ECG COMPLETE ECG ROUTINE ECG W/LEAST 12 LDS W/I&R Mauricio Chow MD [address] [place] [address] [facility] [address] [address] Referral ID Status Reason Start Date Expiration Date V isits Requested Visits Authorized [id number] Closed Auto-Generate d Referral 08/19/2022 08/19/2023 1 1 [facility] for referral (narrative)No reason for [facility] Summary Purpose Family History No Family History Records Found Relationship Condition Age at Onset Recorded Date/T amanda mother Cardiac disease Unknown Osteoporosis Unknown father Myotonic dystrophy Unknown sister Myotonic dystrophy Unknown grandfather Congestive heart failure Unknown grandmother Sepsis Unknown Advance Directives No Advanced Directives Records FoundNo Advanced Directives Records FoundNo Advanced Directives Records FoundNo Advanced Directives Records Found Chief Complaint and Reason for Visit Chief Complaint Admit Date MUSC DYST, RECUR PNEUMONIA, DFFY COUGHIN G SECRETIO August 02, 2024 10:35am Myotonic muscular dystrophy August 17, 2024 11:21am Reason for Visit Admit Date Current tobacco use August 02, 2024 10:3 5am Myotonic muscular dystrophy August 02 025 10:35am Swallowing difficulty August 02, 2024 10 :35am Chief Complaint Admit Date MUSC DYST, RECUR PNEUMONIA, DFFY COUGHIN G SECRETIO August 02, 2024 10:35am Myotonic muscular dystrophy August 17, 2024 11:21am REPEAT; MYOTONIC MUSCULAR DYSTROPHY Apri l 2024 11:14am G71.11 - Myotonic muscular dystrophy September 08, 2024 12:50pm Chief Complaint Admit Date MUSC DYST, RECUR PNEUMONIA, DFFY COUGHIN G SECRETIO August 02, 2024 10:35am Myotonic muscular dystrophy August 17, 2024 11:21am REPEAT; MYOTONIC MUSCULAR DYSTROPHY Apri l 2024 11:14am G71.11 - Myotonic muscular dystrophy September 08, 2024 12:50pm 6 wk FU September 20, 2024 12:38 pm Reason for Visit Admit Date Current tobacco use August 02, 2024 10:3 5am Myotonic muscular dystrophy August 02 10:35am Swallowing difficulty August 02, 2024 10 :35am Daytime hypersomnia September 20, 2024 12:38 pm Current tobacco use September 20, 2024 12:38 pm Myotonic muscular dystrophy September 20 12:38pm Swallowing difficulty September 20, 2024 12: 38pm Chief Complaint Admit Date MUSC DYST, RECUR PNEUMONIA, DFFY COUGHIN G SECRETIO August 02, 2024 10:35am Myotonic muscular dystrophy August 17, 2024 11:21am REPEAT; MYOTONIC MUSCULAR DYSTROPHY Apri l 2024 11:14am G71.11 - Myotonic muscular dystrophy September 08, 2024 12:50pm G71.11 - Myotonic muscular dystrophy September 08, 2024 12:59pm 6 wk FU September 20, 2024 12:38 pm HYPERSOMNIA October 11, 2024 8:02 pm Reason for Visit Admit Date Current tobacco use August 02, 2024 10:3 5am Myotonic muscular dystrophy August 02, 2 025 10:35am Swallowing difficulty August 02, 2024 10 :35am Daytime hypersomnia September 20, 2024 12:38 pm Encounter for tobacco use cessation coun seling September 20, 2024 12:38pm COPD (chronic obstructive pulmonary dise ase) September 20, 2024 12:38pm Myotonic muscular dystrophy September 20 12:38pm Swallowing difficulty September 20, 2024 12: 38pm Chief Complaint Admit Date MUSC DYST, RECUR PNEUMONIA, DFFY COUGHIN G SECRETIO August 02, 2024 10:35am Myotonic muscular dystrophy August 17, 2024 11:21am REPEAT; MYOTONIC MUSCULAR DYSTROPHY Apri l 2024 11:14am G71.11 - Myotonic muscular dystrophy September 08, 2024 12:50pm G71.11 - Myotonic muscular dystrophy September 08, 2024 12:59pm 6 wk FU September 20, 2024 12:38 pm HYPERSOMNIA October 11, 2024 8:02 pm 6 wk FU November 01, 2024 10:12 am Reason for Visit Admit Date Current tobacco use August 02, 2024 10:3 5am Myotonic muscular dystrophy August 02, 025 10:35am Swallowing difficulty August 02, 2024 10 :35am Daytime hypersomnia September 20, 2024 12:38 pm Encounter for tobacco use cessation coun seling September 20, 2024 12:38pm COPD (chronic obstructive pulmonary dise ase) September 20, 2024 12:38pm Myotonic muscular dystrophy September 20 12:38pm Swallowing difficulty September 20, 2024 12: 38pm Daytime hypersomnia November 01, 2024 10:12 am Encounter for tobacco use cessation coun seling November 01, 2024 10:12am COPD (chronic obstructive pulmonary dise ase) November 01, 2024 10:12am Myotonic muscular dystrophy November 01 10:12am Swallowing difficulty November 01, 2024 10: 12am Chief Complaint Admit Date G71.11 - Myotonic muscular dystrophy September 08, 2024 12:50pm G71.11 - Myotonic muscular dystrophy September 08, 2024 12:59pm 6 wk FU September 20, 2024 12:38 pm HYPERSOMNIA October 11, 2024 8:02 pm 6 wk FU November 01, 2024 10:12 am 8wfu December 27, 2024 11:17am Reason for Visit Admit Date Daytime hypersomnia September 20, 2024 12:38 pm Encounter for tobacco use cessation coun seling September 20, 2024 12:38pm COPD (chronic obstructive pulmonary dise ase) September 20, 2024 12:38pm Myotonic muscular dystrophy September 20 12:38pm Swallowing difficulty September 20, 2024 12: 38pm Daytime hypersomnia November 01, 2024 10:12 am Encounter for tobacco use cessation coun seling November 01, 2024 10:12am Hypoxemia November 01, 2024 10:12 am COPD (chronic obstructive pulmonary dise ase) November 01, 2024 10:12am Myotonic muscular dystrophy November 01 10:12am Daytime hypersomnia December 27, 2024 11:17am Encounter for tobacco use cessation coun seling December 27, 2024 11:17am Hypoxemia December 27, 2024 11:17am COPD (chronic obstructive pulmonary dise ase) December 27, 2024 11:17am Myotonic muscular dystrophy December 11:17am Additional Source Comments Care Team (unrecognized sect ion and content) Care Team Personnel Name: DEBORA BYRNE MD Position: P4 Physician - Primary Care Member Role: Primary Care Physician Address: Address: [address] [place], [place] [address] Care Team Related Persons Name: RAMILA GRIJALVA Address: Home [address] [place], [place] [id number] Address: Temporary [address] [place], [place] [id number] Name: SILVIA SAHA Address: Home [address] [place], [place] [id number] [place] Name: SILVIA SAHA Address: Home [address] [place], [place] [id number] [place] Name: SILVIA SAHA Address: Home [address] [place], [place] [id number] [place] Name: SILVIA SAHA Address: Home [address] [place], [place] [id number] [place] Care Team Personnel Name: DEBORA BYRNE MD Position: P4 Physician - Primary Care Member Role: Primary Care Physician Address: Address: [address] [facility] [place], [place] [address] Care Team Related Persons Name: RAMILA GRIJALVA Address: Home [address] [place], [place] [id number] Address: Temporary [address] [place], [place] [id number] Name: SILVIA SAHA Address: Home [address] [place], [place] [id number] Name: SILVIA SAHA Address: Home [address] [place], [place] [id number] Name: SILVIA SAHA Address: Home [address] [place], [place] [id number] Name: SILVIA SAHA Address: Home [address] [place], [place] [id number] INFORMATION SOURCE (unrecogn ized section and content) DATE CREATED AUTHOR 06/17/2022 [facility] [facility] DATE CREATED AUTHOR AUTHOR'S ORGANIZ ATION 09/10/2022 [facility] DATE CREATED AUTHOR AUTHOR'S ORGANIZ ATION 01/12/2024 [facility] DATE CREATED AUTHOR AUTHOR'S ORGANIZ ATION 12/28/2024 [facility] Source Comments (unrecognize d section and content) In the event this informatio n is protected by the Federal Confidentiality of Alcohol and Drug Abuse Patient Records regulations: The Federal rules restrict any use of the information to criminally investigate or prosecute any alcohol or drug abuse patient.[facility] Reason for Visit (unrecogniz ed section and content) Reason Comments New Patient Care Teams (unrecognized sec tion and content) Pricing Manager Relationship Specialty Start Date End Date Debora Byrne [address] [place] [address] PCP - General Family Medicine 06/13/22 Janice Kennedy, AREA LOSS PREVENTION MANAGER.[employer] INST[employer]ER [address] [place] [address] Referring Primary Care 06/13/22 Janice Kennedy, AREA LOSS PREVENTION MANAGER.TER[employer]ZZO INSTALLER [address] [place] [address] Referring Primary Care 06/16/22 Team Status: Active Member Role Status Dates JANICE KENNEDY PROFESSOR OF ENVIRONMENTAL STUDIES Primary Care Provider Active Team Status: Inactive Member Role Status Dates Dr. Leif Quiros , Attending Provider Active S tart: August 02, 2024 End: August 02, 2024 Dr. Kb Veloz , Referring Provider Active Start: August 02, 2024 End: August 02, 2024 Team Status: Inactive Member Role Status Dates Dr. Leif Quiros , Attending Provider Active S tart: August 17, 2024 End: August 17, 2024 Dr. Leif Quiros , Referring Provider Active S tart: August 17, 2024 End: August 17, 2024 JANICE MAST , PROFESSOR OF ENVIRONMENTAL STUDIES Primary Care Provider Active Start: August 17, 2024 End: August 17, 2024 Team Status: Inactive Member Role Status Dates JANICE KENNEDY , PROFESSOR OF ENVIRONMENTAL STUDIES Primary Care Provider Active Start: August 24, 2024 End: August 24, 2024 Dr. Leif Quiros , Attending Provider Active S tart: August 24, 2024 End: August 24, 2024 Dr. Leif Quiros , Referring Provider Active S tart: August 24, 2024 End: August 24, 2024 Team Status: Inactive Member Role Status Dates Dr. Leif Quiros , Attending Provider Active S tart: September 08, 2024 End: September 08, 2024 Dr. Leif Quiros , Referring Provider Active S tart: September 08, 2024 End: September 08, 2024 JANICE MAST , PROFESSOR OF ENVIRONMENTAL STUDIES Primary Care Provider Active Start: September 08, 2024 End: September 08, 2024 Team Status: Inactive Member Role Status Dates NUBIA SeguraC Attending Provider Active Start: September 20, 2024 End: September 20, 2024 JANICE MAST , PROFESSOR OF ENVIRONMENTAL STUDIES Primary Care Provider Active Start: September 20, 2024 End: September 20, 2024 JANICE MAST , PROFESSOR OF ENVIRONMENTAL STUDIES Referring Provider Active Sta rt: September 20, 2024 End: September 20, 2024 Team Status: Active Member Role Status Dates JANICE MAST , PROFESSOR OF ENVIRONMENTAL STUDIES Primary Care Provider Active Start: September 08, 2024 Dr. Leif Quiros , Attending Provider Active S tart: September 08, 2024 Dr. Leif Quiros , Referring Provider Active S tart: September 08, 2024 Team Status: Inactive Member Role Status Dates JANICE MAST , PROFESSOR OF ENVIRONMENTAL STUDIES Primary Care Provider Active Start: October 11, 2024 End: October 11, 2024 BHAVANA Segura Attending Provider Active Start: October 11, 2024 End: October 11, 2024 BHAVANA Segura Referring Provider Active Start: October 11, 2024 End: October 11, 2024 Team Status: Active Member Role/Relationship Status Dates JANICE MAST , PROFESSOR OF ENVIRONMENTAL STUDIES Primary Care Provider Active Team Status: Inactive Member Role/Relationship Status Dates Dr. Leif Quiros DO Attending Provider Active S tart: August 02, 2024 End: August 02, 2024 Dr. Kb Veloz DO Referring Provider Active Start: August 02, 2024 End: August 02, 2024 Team Status: Inactive Member Role/Relationship Status Dates Dr. Leif Qurios DO Attending Provider Active S tart: August 17, 2024 End: August 17, 2024 Dr. Leif Quiros DO Referring Provider Active S tart: August 17, 2024 End: August 17, 2024 JANICE MAST , PROFESSOR OF ENVIRONMENTAL STUDIES Primary Care Provider Active Start: August 17, 2024 End: August 17, 2024 Team Status: Inactive Member Role/Relationship Status Dates JANICE MAST , PROFESSOR OF ENVIRONMENTAL STUDIES Primary Care Provider Active Start: August 24, 2024 End: August 24, 2024 Dr. Leif Quiros , Attending Provider Active S tart: August 24, 2024 End: August 24, 2024 Dr. Leif Quiros , Referring Provider Active S tart: August 24, 2024 End: August 24, 2024 Team Status: Inactive Member Role/Relationship Status Dates Dr. Leif Quiros DO Attending Provider Active S tart: September 08, 2024 End: September 08, 2024 Dr. Leif Quiros , Referring Provider Active S tart: September 08, 2024 End: September 08, 2024 JANICE MAST , PROFESSOR OF ENVIRONMENTAL STUDIES Primary Care Provider Active Start: September 08, 2024 End: September 08, 2024 Team Status: Active Member Role/Relationship Status Dates JANICE MAST , PROFESSOR OF ENVIRONMENTAL STUDIES Primary Care Provider Active Start: September 08, 2024 Dr. Leif Quiros , Attending Provider Active S tart: September 08, 2024 Dr. Leif Quiros , Referring Provider Active S tart: September 08, 2024 Team Status: Inactive Member Role/Relationship Status Dates NUBIA SeguraC Attending Provider Active Start: September 20, 2024 End: September 20, 2024 JANICE MAST , PROFESSOR OF ENVIRONMENTAL STUDIES Primary Care Provider Active Start: September 20, 2024 End: September 20, 2024 JANICE MAST , PROFESSOR OF ENVIRONMENTAL STUDIES Referring Provider Active Sta rt: September 20, 2024 End: September 20, 2024 Team Status: Inactive Member Role/Relationship Status Dates JANICE MAST , PROFESSOR OF ENVIRONMENTAL STUDIES Primary Care Provider Active Start: October 11, 2024 End: October 11, 2024 BHAVANA Segura Attending Provider Active Start: October 11, 2024 End: October 11, 2024 BHAVANA Segura Referring Provider Active Start: October 11, 2024 End: October 11, 2024 Team Status: Inactive Member Role/Relationship Status Dates JANICE MAST , PROFESSOR OF ENVIRONMENTAL STUDIES Primary Care Provider Active Start: November 01, 2024 End: November 01, 2024 JANICE MAST , PROFESSOR OF ENVIRONMENTAL STUDIES Referring Provider Active Sta rt: November 01, 2024 End: November 01, 2024 NUBIA SeguraC Attending Provider Active Start: November 01, 2024 End: November 01, 2024 Team Status: Inactive Member Role/Relationship Status Dates Dr. Leif Quiros , Attending Provider Active S tart: September 08, 2024 End: September 08, 2024 Dr. Leif Quiros , Referring Provider Active S tart: September 08, 2024 End: September 08, 2024 JANICE MAST , PROFESSOR OF ENVIRONMENTAL STUDIES Primary Care Provider Active Start: September 08, 2024 End: September 08, 2024 Team Status: Active Member Role/Relationship Status Dates JANICE MAST , PROFESSOR OF ENVIRONMENTAL STUDIES Primary Care Provider Active Start: September 08, 2024 Dr. Leif Quiros , Attending Provider Active S tart: September 08, 2024 Dr. Leif Quiros , Referring Provider Active S tart: September 08, 2024 Team Status: Inactive Member Role/Relationship Status Dates BHAVANA Segura Attending Provider Active Start: September 20, 2024 End: September 20, 2024 JANICE MAST , PROFESSOR OF ENVIRONMENTAL STUDIES Primary Care Provider Active Start: September 20, 2024 End: September 20, 2024 JANICE MAST , PROFESSOR OF ENVIRONMENTAL STUDIES Referring Provider Active Sta rt: September 20, 2024 End: September 20, 2024 Team Status: Inactive Member Role/Relationship Status Dates JANICE MAST , PROFESSOR OF ENVIRONMENTAL STUDIES Primary Care Provider Active Start: October 11, 2024 End: October 11, 2024 BHAVANA Segura Attending Provider Active Start: October 11, 2024 End: October 11, 2024 BHAVANA Segura Referring Provider Active Start: October 11, 2024 End: October 11, 2024 Team Status: Inactive Member Role/Relationship Status Dates JANICE MAST , PROFESSOR OF ENVIRONMENTAL STUDIES Primary Care Provider Active Start: November 01, 2024 End: November 01, 2024 JANICE MAST , PROFESSOR OF ENVIRONMENTAL STUDIES Referring Provider Active Sta rt: November 01, 2024 End: November 01, 2024 BHAVANA Segura Attending Provider Active Start: November 01, 2024 End: November 01, 2024 Team Status: Inactive Member Role/Relationship Status Dates JANICE MAST , PROFESSOR OF ENVIRONMENTAL STUDIES Primary Care Provider Active Start: December 27, 2024 End: December 27, 2024 JANICE MAST , PROFESSOR OF ENVIRONMENTAL STUDIES Referring Provider Active Sta rt: December 27, 2024 End: December 27, 2024 BHAVANA Segura Attending Provider Active Start: December 27, 2024 End: December 27, 2024 Goals (unrecognized section and content) Goals may be documented in a n alternate section FOR RECORDS PERTAINING TO PATIENTS WHO ARE OR HAVE BEEN ENROLLED IN A CHEMICAL DEPENDENCY/SUBSTANCEABUSE PROGRAM, SOME INFORMATION MAY BE OMITTED. This clinical summary was aggregated from multiple sources. Caution should be exercised in using it in the provision of clinical care. This summary normalizes information from multiple sources, and as a consequence, information in this document may materially change the coding, format and clinical context of patient data. In addition, data may be omitted in some cases. CLINICAL DECISIONS SHOULD BE BASED ON THE PRIMARY CLINICAL RECORDS. [facility] [employer] [facility] provides no warranty or guarantee of the accuracy or completeness of information in this document.
== END | disposition home or self-care (01) ==
PROVIDERS: PCP Nurse Practitioner Adult Health; Referring Provider Nurse Practitioner Family; Visit Provider Nurse Practitioner Family
DX: J44.9 Chronic obstructive pulmonary disease, unspecified (principal)
CPT/HCPCS: 36600; 82803

== ENCOUNTER → 2025-04-25 | Outpatient (CLI) | payer MEDICAID, SELFPAY | END | disposition home or self-care (01) | LOC: LABSPEC 14:51 | PROVIDERS: PCP Nurse Practitioner Adult Health; Referring Provider Nurse Practitioner Family; Visit Provider Nurse Practitioner Family | DX: R50.9 Fever, unspecified (principal) | CPT/HCPCS: 87631 ==